=== PATIENT | female | born 1990 | race Caucasian/White ===

== ENCOUNTER 2017-03-20 12:44 | Emergency (ER) | payer OTHER ==
[~2017-03-20] VITALS: Ht 170.2 cm; Wt 74.8 kg
[~2017-03-20 12:44] MED LIST: AMOXICILLIN 50500 MG PO; APAP/OXYCODONE1 TA1 PO; FERROUS SULFAT325 M1 PO; FLEXERIL10 MG PO; KEFLEX 500MG.500 MG PO; LORTAB 5/500 501 TAB PO; MACROBID 100MG100 MG PO; NOMEDS *; PNV PRENATAL HE1 TAB PO; PRENATAL1 TA1 PO; SEPTRA DS 800 M1 TAB PO; TAMIFLU 75MG CA75 MG PO; VICODIN 5/500 T1 TAB PO; VOLTAREN75 MG PO
--- OUTSIDE RECORDS SUMMARY | 2017-03-20 13:28 | External Medical Summary Rpt ---
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 BERGERON BACTERIAL 4 [facility] INC INC QUANTTATI VE COLONY COUNT URINE US PREG 78099 SHANIA SHANIA UTERUS 4 HERBIE HERBIE AFTER 1ST TRIMEST GESTATION US PREG 54342 NATHAN EVANS UTERUS 4 KASHIF KASHIF REAL TIME W/IMAGE DCMTN TRANSVAG CYTP C/V 43189 PICKLESIM PICKLESIM AUTO THIN 4 ER JR ROBERTO ER JR ROBERTO LYR PREPJ SCR MNL RESCR PHYS IADNA 64713 PICKLESIM PICKLESIM NEISSERIA 4 ER JR ROBERTO ER JR ROBERTO GONORRHOE AE AMPLIFIED PROBE TQ URINE 32795 NATHAN EVANS 4 KASHIF KASHIF TEST VISUAL COLOR CMPRSN METHS IADNA 43121 PICKLESIM PICKLESIM CHLAMYDIA 4 ER JR ROBERTO ER JR ROBERTO [place] [address] SHANIA SHANIA 4 HERBIE HERBIE UTERUS 14 WK TRANSABDL GESTAT COMPREHEN 14949 RUBIO BERGERON SIVE 4 [facility] METABOLIC INC INC PANEL GONADOTRO 19953 RUBIO BERGERON PIN 4 [facility] CHORIONIC INC INC QUANTITAT STALIN US PREG 40712 RUBIO BERGERON UTERUS 4 [facility] REAL TIME INC INC W/IMAGE DCMTN TRANSVAG URINE 45841 RUBIO BERGERON 4 [facility] TEST INC INC VISUAL COLOR CMPRSN METHS CULTURE 98497 RUBIO BERGERON BACTERIAL 4 [facility] INC INC QUANTTATI VE COLONY COUNT URINE URNLS DIP 71383 RUBIO BERGEORN 4 [facility] STICK/TAB INC INC LET REAGENT AUTO MICROSCOP Y BLOOD 74182 RUBIO BERGERON COUNT 4 [facility] COMPLETE INC INC AUTO&AUTO DIFRNTL WBC CT LUMBAR 53531 SHANIA SHANIA SPINE 4 HERBIE HERBIE W/O CONTRAST MATERIAL REMOVAL 33039 NATHAN EVANS INTRAUTER 3 KASHIF KASHIF INE DEVICE IUD IAADIADOO 51611 ANA MARÍA PREET ANA MARÍA PREET 3 STREPTOCO CCUS GROUP A CULTURE 45269 RUBIO BERGERON BCT 3 [facility] ISOL&PRSM INC INC PTV ID ISOLATE EA URINE CULTURE 17613 RUBIO BERGERON BACTERIAL 3 [facility] INC INC QUANTTATI VE COLONY COUNT URINE URINE 80255 RUBIO BERGERON 3 [facility] TEST INC INC VISUAL COLOR CMPRSN METHS SUSCEPTIB 45213 RUBIO BERGERON LTY STDY 3 [facility] ANTIMICRB INC INC IAL MICRO/AGA R DILUTJ URNLS DIP 84428 RUBIO BERGERON 3 [facility] STICK/TAB INC INC LET REAGENT AUTO MICROSCOP Y URNLS DIP 78914 [facility] 3 PHYSICIAN PHYSICIAN STICK/TAB S GROUP S GROUP LET RGNT NON-AUTO W/O MICRSCP IAADIADOO 92508 NILSA NILSA 2 NYASIA NYASIA INFLUENZA IAADI 93724 RUBIO BERGERON INFFLUENZ 2 [facility] A A VIRUS INC INC IAADI 41322 RUBIO BERGERON INFLUENZA 2 [facility] [place] [address] RUBIO BERGERON STREPTOCO 2 [facility] CCUS INC INC GROUP A IADNA 60593 MARILYN MARILYN STREPTOCO 1 KESHIA KESHIA CCUS GROUP A QUANTIFIC ATION THER 82583 RAKESH CAMERON PROPH/DX 1 LACIE LACIE NJX IV PUSH SINGLE/1S T SBST/DRUG DEEP D9220 RAKESH CAMERON SEDATION/ 1 LACIE LACIE GENERAL ANESTHESI A-1ST 30 MINUTES ORTHOPANT 23075 RAKESH CAMERON OGRAM 1 LACIE LACIE LEVONORGE J7302 [facility] STREL-RLS 1 [facility] E CLINIC OF INTRAUTER MADY N CNTRACPT 52 MG URINE 13012 [facility] 1 [facility] TEST CLINIC OF VISUAL MADY COLOR CMPRSN METHS INSERTION 95611 [facility] 1 [facility] INTRAUTER CLINIC OF INE MADY DEVICE IUD CYTP C/V 21456 PATHOLOGY PATHOLOGY AUTO THIN 1 & & LYR CYTOLOGY CYTOLOGY PREPJ SCR LAB LAB MNL RESCR [facility] 21453 [facility] DISCHARGE 1 PHYSICIAN RALF DAY GROUP MANAGEMEN PCC T 30 MIN/< VAGINAL 45940 [facility] DELIVERY 1 PHYSICIAN RALF ONLY GROUP PCC INITIAL 78218 [facility] 1 PHYSICIAN RALF CARE/DAY GROUP 70 PCC MINUTES REPAIR OF 7569 RUBIO RUBIO OTHER 1 [facility] CURRENT INC INC OBSTETRIC LACERATIO N 08489 [facility] NONSTRESS 1 [facility] TEST CLINIC OF MADY 30284 [facility] NONSTRESS 1 [facility] TEST CLINIC OF MADY DOPPLER 31097 RUBIO BERGERON VELOCIMET 1 [facility] RY INC INC UMBILICAL ARTERY SERVICES 44212 [facility] PROVIDED 1 [facility] OFFICE CLINIC OF OTH/THN MADY REG SCHED HOURS US PREG 54068 RUBIO BERGERON UTERUS 1 [facility] REAL TIME INC INC F/U TRNSABDL PER FETUS 81036 RUBIO BERGERON BIOPHYSIC 1 [facility] AL INC INC PROFILE W/O NON-STRES S TESTING CUL BACT 93516 COMBINED COMBINED XCPT 1 PHYSICIAN PHYSICIAN URINE S LA S LA BLOOD/STO OL AEROBIC ISOL 92556 [facility] NONSTRESS 1 [facility] TEST CLINIC OF MADY 37175 RUBIO BERGERON NONSTRESS 1 [facility] TEST INC INC CULTURE 66946 RUBIO BERGERON BACTERIAL 1 [facility] INC INC QUANTTATI VE COLONY COUNT URINE URNLS DIP 97546 RUBIO BERGERON 1 [facility] STICK/TAB INC INC LET REAGENT AUTO MICROSCOP Y 69596 [facility] BIOPHYSIC 1 [facility] AL CLINIC OF PROFILE MADY NON-STRES S TESTING DOPPLER 45959 [facility] VELOCIMET 1 [facility] RY CLINIC OF UMBILICAL MADY ARTERY US PREG 82634 [facility] UTERUS 1 [facility] REAL TIME CLINIC OF F/U MADY TRNSABDL PER FETUS THERAPEUT 10541 RUBIO BERGERON IC 1 [facility] PROPHYLAC INC INC TIC/DX INJECTION SUBQ/IM THERAPEUT 65255 RUBIO BERGERON IC 1 [facility] PROPHYLAC INC INC TIC/DX INJECTION SUBQ/IM 85209 RUBIO ORTEGAON NONSTRESS 1 [facility] TEST INC INC 90502 [facility] SHANIA BIOPHYSIC 1 MEDICAL HERBIE AL IMAGING PROFILE ASS W/O NON-STRES S TESTING DOPPLER 01997 [facility] HE[facility] VELOCIMET 1 MEDICAL HERBIE RY IMAGING UMBILICAL ASS ARTERY US PREG 67106 [facility] UTERUS 1 MEDICAL HERBIE REAL TIME IMAGING W/IMAGE ASS DCMTN TRANSVAG DOPPLER 27426 [facility] HEALYSH[facility]IA VELOCIMET 1 MEDICAL HERBIE RY IMAGING UMBILICAL ASS ARTERY US PREG 65805 [facility] JAUREGUI UTERUS 1 MEDICAL HERBIE REAL TIME IMAGING F/U ASS TRNSABDL PER FETUS 25803 [place] SHANIA BIOPHYSIC 1 MEDICAL HERBIE AL IMAGING PROFILE ASS W/O NON-STRES S TESTING INITIAL 72875 [facility] 1 PHYSICIAN RALF CARE/DAY GROUP 70 PCC MINUTES 53103 [facility] BIOPHYSIC 1 [facility] AL CLINIC OF PROFILE MADY W/O NON-STRES S TESTING US PREG 44624 [facility] UTERUS 1 [facility] REAL TIME CLINIC OF F/U MADY TRNSABDL PER FETUS DOPPLER 88311 [facility] VELOCIMET 1 [facility]ASH[facility] RY CLINIC OF UMBILICAL MADY ARTERY GLUCOSE 54758 [facility] TOLERANCE 1 [facility] TEST GTT CLINIC OF 3 MADY SPECIMENS EXC B9 37339 A C MARILYN LESION 1 JESSA MAGALLON KESHIA MRGN XCP PSC SK TG T/A/L 0.5 CM/< US PREG 03454 [facility] UTERUS 1 [facility] AFTER 1ST CLINIC OF TRIMEST [place]ADY 1/ [place] [address] GAGE LLANOSUTCHER 0 MEDICAL HERBIE UTERUS IMAGING LIMITED ASS 1/> [place] [address] RUBIO BERGERON ESTRIOL 0 [facility] INC INC ALPHA-FET 99194 RUBIO BERGERON OPROTEIN 0 [facility] SERUM INC INC URNLS DIP 23915 RUBIO RUBIO 0 [facility] STICK/TAB INC INC LET REAGENT AUTO MICROSCOP Y CULTURE 55993 RUBIO BERGERON BACTERIAL 0 [facility] INC INC QUANTTATI VE COLONY COUNT URINE US PREG 98462 RUBIO BERGERON UTERUS 0 [facility] REAL TIME INC INC W/IMAGE DCMTN TRANSVAG US PREG 32084 [facility] UTERUS 0 [facility] REAL TIME CLINIC OF W/IMAGE MADY DCMTN TRANSVAG CYTP C/V 02119 PATHOLOGY PATHOLOGY AUTO THIN 0 & & LYR CYTOLOGY CYTOLOGY PREPJ SCR LAB LAB MNL RESCR PHYS CYTP 43248 PATHOLOGY PATHOLOGY CERVICAL/ 0 & & VAGINAL CYTOLOGY CYTOLOGY REQ LAB LAB INTERP PHYSICIAN IADNA 72863 PATHOLOGY PATHOLOGY CHLAMYDIA 0 & & CYTOLOGY CYTOLOGY TRACHOMAT LAB LAB IS AMPLIFIED PROBE TQ IADNA 00321 PATHOLOGY PATHOLOGY NEISSERIA 0 & & CYTOLOGY CYTOLOGY GONORRHOE LAB LAB AE AMPLIFIED PROBE TQ GONADOTRO 46359 RUBIO RUBIO PIN 0 [facility] CHORIONIC INC [place] 73158 [facility], UTERUS 0 [facility] J REAL TIME CLINIC OF W/IMAGE DCMTN [place] [facility]SV[facility] GONADOTRO 28923 RUBIO ORTEGAON PIN 0 [facility] CHORIONIC INC [place] 30543 RUBIO BERGERON UTERUS 0 [facility] REAL TIME INC INC W/IMAGE DCMTN TRANSVAG BASIC 28161 RUBIO BERGERON METABOLIC 0 [facility] PANEL INC INC CALCIUM TOTAL URINE 60771 RUBIO BERGERON 0 [facility] TEST INC INC VISUAL COLOR CMPRSN METHS URNLS DIP 47784 RUBIO RUBIO 0 [facility] STICK/TAB INC INC LET REAGENT AUTO MICROSCOP Y CULTURE 27792 RUBIO BERGERON BACTERIAL 0 [facility] INC INC QUANTTATI VE COLONY COUNT URINE BLOOD 51170 RUBIO RUBIO COUNT 0 [facility] COMPLETE INC INC AUTO&AUTO DIFRNTL [facility] 30473 Ashly SANDERS, DISCHARGE 0 JESSA JIMENEZ DAY [facility] MANAGEMEN T 30 MIN/< CIRCUMCIS 79975 Ashly SANDERS, ION 0 JESSA JIMENEZ W/CLAMP/O PSC TH DEV W/BLOCK 1ST 10769 Ashly Domo SANDERS, HOSP/DENA 0 JESSA JIMENEZ [facility] CARE PER DAY NML NB VAGINAL 32868 [facility], DELIVERY 0 [facility] J ONLY CLINIC OF W/POSTPAR [facility] REPAIR OF 7569 RUBIO BERGERON OTHER 0 [facility] CURRENT INC INC OBSTETRIC LACERATIO N 47972 [facility], NONSTRESS 0 [facility] J TEST [facility] [place] [facility] 05871 [facility], NONSTRESS 0 [facility] J [facility] 16541 [facility], NONSTRESS 0 [facility] J TEST [facility] 53793 [facility], PROVIDED 0 [facility] J OFFICE CLINIC OF OT/N REG SCHED [facility] 27625 RUBIO BERGERON NONSTRESS 0 [facility] TEST INC INC CULTURE 74268 RUBIO BERGERON BCT 0 [facility] ISOL&PRSM INC INC PTV ID ISOLATE EA URINE CULTURE 47855 RUBIO BERGERON BACTERIAL 0 [facility] INC INC QUANTTATI VE COLONY COUNT URINE SUSCEPTIB 00780 RUBIO BERGERON LTY STDY 0 [facility] ANTIMICRB INC INC IAL MICRO/AGA R DILUTJ URNLS DIP 26427 RUBIO BERGERON 0 [facility] STICK/TAB INC INC LET REAGENT AUTO MICROSCOP Y CUL BACT 21289 COMBINED COMBINED XCPT 0 PHYSICIAN PHYSICIAN URINE S LAB S LAB BLOOD/STO [place]EROBIC [place]OL [place] P[place] 54049 [facility], UTERUS 9 [facility] J REAL TIME CLINIC OF F/U TRNSABDL DORENA PER FETUS [facility] DOPPLER 80771 [facility], VELOCIMET 9 [facility] UMBILICAL ARTERY [place] [facility] 63211 [facility], BIOPHYSIC 9 [facility] J AL CLINIC OF PROFILE W/O [place] NON-STRES [facility] [place] [address] RUBIO BERGERON STREPTOCO 9 [facility] CCUS INC INC GROUP A IAADI 19487 RUBIO BERGERON INFLUENZA 9 [facility] B VIRUS INC INC IAADI 80904 RUBIO BERGERON INFFLUENZ 9 [facility] A A VIRUS INC INC GLUCOSE 02896 [facility], TOLERANCE 9 [facility] TEST GTT CLIN[facility] OF 3 SPECIMENS CY[place] ALEJANDRA [facility] GLUCOSE 58330 [facility], POST 9 [facility] GLUCOSE CLINIC OF DOSE [place] [facility] US PREG 37379 [facility], UTERUS 9 [facility] AFTER 1ST CLINIC OF TRIMEST [place] GESTATION [facility] CULTURE 86684 RUBIO BERGERON BACTERIAL 9 [facility] INC INC QUANTTATI VE COLONY COUNT URINE BLOOD 35232 RUBIO BERGERON COUNT 9 [facility] COMPLETE INC INC AUTO&AUTO DIFRNTL WBC URNLS DIP 09842 RUBIO BERGERON 9 [facility] STICK/TAB INC INC LET REAGENT AUTO MICROSCOP Y COMPREHEN 92902 RUBIO BERGERON SIVE 9 [facility] [place] [address] RUBIO BERGERON ESTRIOL 9 [facility] INC INC ALPHA-FET 77978 RUBIO BERGERON OPROTEIN 9 [facility] SERUM INC INC GONADOTRO 08040 RUBIO BERGERON PIN 9 [facility] CHORIONIC [place] [address]175 FABIANO MCCAINL, UTERUS 9 KRYS Cerrato REAL TIME W/IMAGE DCMTN TRANSVAG IADNA 10990 [facility] NEISSERIA 9 [facility] GONORRHOE AE AMPLIFIED PROBE TQ IADNA 00804 [facility] CHLAMYDIA 9 [facility] TRACHOMAT IS AMPLIFIED PROBE TQ URINE 76090 [facility], 9 [facility] TEST CLINIC OF VISUAL COLOR [place] CMPRSN [facility] METHS [place] P[place] 41069 [facility], UTERUS 9 [facility] REAL TIME CLINIC OF W/IMAGE DCMTN [place] TRANSVAG [facility] OBSTETRIC 58697 RUBIO BERGERON PANEL 9 [facility] INC INC CYTP C/V 01569 [facility] AUTO THIN 9 [facility] LYR PREPJ S[place] [address] [facility] NON-IMMUN 9 [facility] OLOGIC OTH/THN CYTOPATHI C IADNA 47562 [facility] [place] 9 [facility] GONORRHOE AE AMPLIFIED PROBE TQ IADNA 82459 [facility] CHLAMYDIA 9 [facility] TRACHOMAT IS AMPLIFIED PROBE TQ GONADOTRO 14062 RUBIO BERGERON PIN 9 [facility] CHORIONIC INC INC QUANTITAT STALIN GONADOTRO 10860 RUBIO BERGERON PIN 9 [facility] CHORIONIC INC INC QUANTITAT STALIN CULTURE 98880 RUBIO BERGERON BACTERIAL 9 [facility] INC INC QUANTTATI VE COLONY COUNT URINE BLOOD 16953 RUBIO BERGERON COUNT 9 [facility] COMPLETE INC INC AUTO&AUTO DIFRNTL WBC URNLS DIP 49823 RUBIO BERGERON 9 [facility] STICK/TAB INC INC LET REAGENT AUTO MICROSCOP Y URINE 79690 RUBIO BERGERON 9 [facility] TEST INC INC VISUAL COLOR CMPRSN METHS INJ J1055 [facility] RUBIO MDRXYPRGE 8 [facility] ACTAT BANK ACCT CNTRACPT USE 150 MG INJ J1055 [facility] RUBIO MDRXYPRGE [address] [place] [address] ACTAT BANK ACCT CNTRACPT USE 150 MG INJ J1055 [facility] RUBIO MDRXYPRGE 8 [facility] ACTAT BANK ACCT CNTRACPT USE 150 MG Encounters Encounter Start End Date Code Location Performer Type Date [facility] RUBIO - 7 7 [facility] OUTPATIEN INC T OFFICE 68258 [facility] OUTPATIEN 7 7 PHYSICIAN T VISIT S GROUP 15 MINUTES HOSPITAL RUBIO - 6 6 [facility] OUTPATIEN INC T OFFICE 48127 [facility] OUTPATIEN 6 6 PHYSICIAN EUG T VISIT S GROUP 15 MINUTES OFFICE 92088 [facility] PE[facility] OUTPATIEN 6 6 PHYSICIAN STONE T VISIT S GROUP GEOVANNY GARZA 15 MINUTES OFFICE 68421 [facility] J[facility] OUTPATIEN 6 6 PHYSICIAN AUDRA T VISIT S GROUP 25 MINUTES OFFICE 42532 [facility] OUTPATIEN 6 6 PHYSICIAN EUG T VISIT S GROUP 10 MINUTES HOSPITAL RUBIO - 6 6 [facility] OUTPATIEN INC T OFFICE 72996 [facility] OUTPATIEN 6 6 PHYSICIAN EUG T VISIT S GROUP 15 MINUTES OFFICE 24846 [facility] ROBERTA OUTPATIEN 6 6 PHYSICIAN AUDRA T VISIT S GROUP 25 MINUTES OFFICE 63868 RUBIO GRANADOS OUTPATIEN 5 5 [facility] T VISIT [facility] 10 MINUTES OFFICE 12888 RUBIO JOE OUTPATIEN 5 5 [facility] 10 MINUTES OFFICE 52488 Ashly VARELA OUTPATIEN 5 5 JESSA MAGALLON JEAshly T VISIT [facility] 15 MINUTES OFFICE 92617 RUBIO GRANADOS OUTPATIEN 5 5 [facility] T VISIT [facility] 15 MINUTES PERIODIC 75237 [facility] PREVENTIV 5 5 PHYSICIAN E MED EST S GROUP PATIENT 18-39 YRS OFFICE 74181 Ashly VARELA OUTPATIEN 5 5 JESSA STERLING T VISIT PSC 15 MINUTES HOSPITAL RUBIO - 4 4 [facility] INPATIENT INC OFFICE 45885 [facility] OUTPATIEN 4 4 KASHIF KASHIF T VISIT 15 MINUTES OFFICE 77743 [facility] OUTPATIEN 4 4 KASHIF KASHIF T VISIT 15 MINUTES HOSPITAL RUBIO - 4 4 [facility] OUTPATIEN INC T [facility]OSPITAL RUBIO - 4 4 [facility] OUTPATIEN INC [facility] RUBIO - 4 4 [facility] OUTPATIEN INC T OFFICE 27611 [facility] OUTPATIEN 4 4 KASHIF KASHIF T VISIT 15 MINUTES HOSPITAL RUBIO - 4 4 [facility] OUTPATIEN INC T OFFICE 27617 [facility] OUTPATIEN 4 4 KASHIF KASHIF T VISIT 15 MINUTES OFFICE 16947 [facility] OUTPATIEN 4 4 KASHIF KASHIF T VISIT 15 MINUTES HOSPITAL RUBIO - 4 4 [facility] OUTPATIEN INC T OFFICE 94885 [facility] OUTPATIEN 4 4 KASHIF KASHIF T VISIT 15 MINUTES OFFICE 88892 [facility] OUTPATIEN 4 4 KASHIF KASHIF T VISIT 15 MINUTES HOSPITAL CENTRAL - 4 4 [facility] OUTPATIEN HOSP T HOSPITAL RUBIO - 4 4 [facility] OUTPATIEN INC T OFFICE 92388 [facility] OUTPATIEN 4 4 KASHIF KASHIF T VISIT 15 MINUTES HOSPITAL RUBIO - 4 4 [facility] OUTPATIEN INC T OFFICE 43175 NATHAN EVNAS OUTPATIEN 4 4 KASHIF KASHIF T VISIT 15 MINUTES OFFICE 12591 [facility] OUTPATIEN 4 4 KASHIF KASHIF T VISIT 15 MINUTES OFFICE 81309 [facility] OUTPATIEN 4 4 KASHIF KASHIF T VISIT 5 MINUTES OFFICE 55192 NATHAN DANIELLEE OUTPATIEN 4 4 KASHIF KASHIF T VISIT 15 MINUTES HOSPITAL CENTRAL - 4 4 Y[facility]ANI OUTPATIEN HOSP T OFFICE 94931 [facility] CONSULTAT 4 4 HERBIE HERBIE ION NEW/ESTAB PATIENT 15 MIN OFFICE 55478 [facility] OUTPATIEN 4 4 KASHIF KASHIF T VISIT 15 MINUTES HOSPITAL RUBIO - 4 4 [facility] OUTPATIEN INC T HOSPITAL RUBIO - 4 4 [facility] OUTPATIEN INC T EMERGENCY 30194 RUBIO 4 4 [facility] DEPARTMEN INC T VISIT LOW/MODER SEVERITY EMERGENCY 72439 [facility] ALFARIS 4 4 [facility] DEPARTMEN T VISIT HIGH/URGE NT SEVERITY OFFICE 66925 [facility] OUTPATIEN 4 4 KASHIF KASHIF T VISIT 15 MINUTES OFFICE 48006 [facility] OUTPATIEN 4 4 PHYSICIAN T VISIT S GROUP 10 MINUTES OFFICE 24830 [facility] OUTPATIEN 4 4 KASHIF KASHIF T VISIT 15 MINUTES OFFICE 39997 [facility] OUTPATIEN 4 4 KASHIF KASHIF T VISIT 25 MINUTES EMERGENCY 86672 RUBIO 4 4 [facility] DEPARTMEN INC T VISIT MODERATE SEVERITY EMERGENCY 80039 MARIIA CHANTEL MARIIA CHANTEL 4 4 DEPARTMEN T VISIT HIGH/URGE NT SEVERITY HOSPITAL RUBIO - 4 4 [facility] OUTPATIEN INC T Emergency JUAN PABLO Gonzalez MD (ER) 4 11:15 4 12:29 [facility] EMERGENCY 19929 RUBIO 4 4 [facility] DEPARTMEN INC T VISIT MODERATE SEVERITY HOSPITAL RUBIO - 4 4 [facility] OUTPATIEN INC T EMERGENCY 29282 JOANIEN SATINDER SOMARTIN BAB DEPT 4 4 VISIT HIGH SEVERITY& THREAT FUNCJ OFFICE 25118 ANA MARÍA GOTTI PREET OUTPATIEN 3 3 T VISIT 15 MINUTES OFFICE 40065 ANA MARÍA GOTTI PREET OUTPATIEN 3 3 T VISIT 15 MINUTES OFFICE 51776 H OUTPATIEN 3 3 PHYSICIAN T VISIT S GROUP 15 MINUTES OFFICE 02235 H OUTPATIEN 3 3 PHYSICIAN T VISIT S GROUP 15 MINUTES Emergency JUAN PABLO Yadav MD (ER) 3 09:02 3 09:44 [facility] EMERGENCY 00308 JORDIN YADAV 3 3 [facility]DR[facility] DEPARTMEN T VISIT HIGH/URGE NT SEVERITY [facility]OSPITAL [facility]BIO - 3 3 [facility] T EMERGENCY 07374 RUBIO 3 3 [facility] DEPARTMEN INC T VISIT LOW/MODER SEVERITY OFFICE 54910 [facility] OUTPATIEN 3 3 PHYSICIAN T VISIT S GROUP 15 MINUTES OFFICE 61836 ANA MARÍA GOTTI PREET OUTPATIEN 3 3 T VISIT 15 MINUTES OFFICE 90392 [facility] OUTPATIEN 3 3 PHYSICIAN T VISIT S GROUP 15 MINUTES OFFICE 69815 NILSA NILSA OUTPATIEN 2 2 [facility] T VISIT 15 MINUTES OFFICE 65899 NILSA NILSA OUTPATIEN 2 2 [facility] [place] T VISIT 15 MINUTES OFFICE 62316 MARILYN MARILYN OUTPATIEN 2 2 [facility]ESHIA KESHIA T VISIT 15 MINUTES OFFICE 10185 NILSA NILSA OUTPATIEN 2 2 [place] MURRELL T NEW 20 MINUTES HOSPITAL RUBIO - 2 2 [facility] T EMERGENCY 22115 RUBIO 2 2 [facility] DEPARTMEN INC T VISIT LOW/MODER SEVERITY EMERGENCY 87122 KEVIN BROWN 2 2 [facility]BIO - 2 2 [facility] T EMERGENCY 64255 RUBIO 2 2 [facility] T [facility]ISIT LIMITED/M INOR PROB EMERGENCY 46330 KEVIN BROWN 2 2 III [facility]IT[facility] III [facility] T VISIT HIGH/URGE NT SEVERITY OFFICE 55143 MARILYN MARILYN OUTPATIEN 1 1 KESHIA KESHIA T VISIT 15 MINUTES OFFICE 63877 [facility] 15 MADY MINUTES OFFICE 53285 RAKESH CAMERON OUTPATIEN 1 1 LACIE MEDELLIN T NEW 10 MINUTES OFFICE 45083 [facility] 1 [facility] OF 25 MADY MINUTES OFFICE 01030 [facility] 1 1 [facility] OF 15 MADY MINUTES HOSPITAL RUBIO - 1 1 [facility] INPATIENT INC OFFICE 11014 [facility] 1 1 [facility] OF 15 MADY MINUTES [facility]OSPITAL RUBIO - 1 1 [facility] INC T OFFICE 38795 [facility] 1 1 [facility] 15 MADY MINUTES [facility] RUBIO - 1 1 [facility] INC T HOSPITAL RUBIO [facility] 1 1 [facility] OUTPATIEN [facility] OFFICE 14889 [facility] 1 1 [facility] V[facility] OF 15 MADY MINUTES HOSPITAL RUBIO - 1 1 [facility] OUTPATIEN [facility]PITAL RUBIO - 1 1 [facility] INPATIENT INC OFFICE 40754 [facility] 1 1 [facility] V[facility]IN[facility] OF 15 MADY MINUTES OFFICE 47508 [facility] 1 1 [facility] OF 15 MADY MINUTES OFFICE 18360 [facility] 1 1 [facility] T VISIT 5 CLINIC OF MINUTES MADY OFFICE 61229 [facility] 1 1 [facility] V[facility]IT CLINIC OF 15 MADY MINUTES OFFICE 57876 A C MARILYN OUTPATIEN 1 1 JESSA MAGALLON KESHIA T VISIT PSC 15 MINUTES OFFICE 29469 [facility] 1 1 [facility]IN[facility] OF 15 MADY MINUTES OFFICE 68978 [facility] 1 1 [facility]IN[facility] OF 15 MADY MINUTES EMERGENCY 17103 GHASSAN YADAV DEPT 0 0 EMERGENCY [facility] VISIT SERVICES HIGH SEVERITY& THREAT FUN OFFICE 45698 [facility] 0 0 [facility] OF 15 AMDY MINUTES HOSPITAL RUBIO - 0 0 [facility] OUTPATIEN [facility] OFFICE 79822 [facility] 0 0 [facility] T VISIT CLINIC OF 15 MADY MINUTES OFFICE 86066 [facility] OUTPATIEN 0 0 [facility] T VISIT CLINIC OF 15 MADY MINUTES EMERGENCY 64926 [facility] 0 0 [facility] DEPART[facility] INC T VISIT LOW/MODER SEVERITY EMERGENCY 69293 GHASSAN BOX 0 0 EMERGENCY AWILDA DEPARTMEN SERVICES T VISIT HIGH/URGE NT SEVERITY [facility] T EMERGENCY 10912 GHASSAN YADAV, 0 0 [facility] HIGH/URGE ASSOCIATE NT S SEVERITY EMERGENCY [id number] [facility] 0 0 [facility] DEPARTMEN [facility] T VISIT MODERATE [facility]VERITY [facility] - 0 0 [facility] - 0 0 [facility] INPATIENT INC OFFICE 64534 [facility] 0 0 [facility] 15 MINUTES [facility] OFF[facility] 89869 [facility], OUTPATIEN 0 0 [facility] 15 MINUTES [facility] - 0 0 [facility] OUTPATIEN [facility] OFFICE 90660 [facility] OUTPATIEN 0 0 [facility] OF 15 MINUTES [facility] OFFICE 85631 [facility] EV[facility], OUTPATIEN 9 9 [facility] OF 15 MINUTES [facility] OFF[facility] 47765 [facility], OUTPATIEN 9 9 [facility] OF 15 MINUTES [facility] - 9 9 [facility] OUT[facility] T EMERGENCY 35363 GHASSAN BROWN 9 9 EMERGENCY III, DEPARTMEN SERVICES TOYIN T VISIT MODERATE ASSOCIATE SEVERITY S OFFICE 78253 [facility], OUTPATIEN 9 9 [facility] OF 15 MINUTES [facility] OFFICE 96811 WOMEN'S EV[facility], OUTPATIEN 9 9 [facility] 20669 WOMEN'S EVANS, OUTPATIEN 9 9 [facility] T VISIT 5 CLINIC OF MINUTES [facility] OFFICE 09906 [facility]EN'[facility] EV[facility], OUTPATIEN 9 9 [facility] T V[facility]IT [facility] OF 15 MINUTES [facility] OFF[facility] 14920 WOMEN'S EVANS, OUTPATIEN 9 9 [facility] V[facility] OF 15 MINUTES [facility] - 9 9 [facility] T EMERGENCY 12982 GHASSAN RAMIREZ, 9 9 EMERGENCY FABI P DEPARTMEN SERVICES T VISIT HIGH/URGE ASSOCIATE NT S SEVERITY EMERGENCY 59474 GHASSAN YADAV, 9 9 EMERGENCY [facility] S DEPARTMEN SERVICES T VISIT MODERATE ASSOCIATE SEVERITY S EMERGENCY 21039 [facility] 9 9 [facility] DE[facility] T VISIT LIMITED/M [facility] PROB [facility] - 9 9 [facility] T OFFICE 16191 [facility], OUTPATIEN 9 9 [facility] T V[facility]IN[facility] OF 15 MINUTES [facility] OFF[facility] 11057 [facility] EV[facility], OUTPATIEN 9 9 [facility] T V[facility] OF 15 MINUTES [facility] EMERGENCY 58590 GHASSAN RAMIREZ, 9 9 EMERGENCY FABI P DEPARTMEN SERVICES T VISIT MODERATE ASSOCIATE SEVERITY [facility] - 9 9 [facility] OUT[facility] T EMERGENCY 13758 [facility] 9 9 [facility] DEPARTMEN INC T VISIT LIMITED/M INOR PROB OFFICE 56150 FABIANO MARCANO OUTPATIEN 9 9 KRYS MARIO R T VISIT 15 MINUTES OFFICE 77846 ZENOBIA CANTUPATIEN 9 9 KRYS MARIO R T VISIT 15 MINUTES OFFICE 45701 ZENOBIA CANTUPATIEN 9 9 KRYS MARIO R T VISIT 15 MINUTES [facility] - 9 9 [facility] T [facility] - 9 9 [facility] - 9 9 [facility] T EMERGENCY 21541 [facility] 9 9 [facility] DEPARTMEN INC T VISIT MODERATE SEVERITY OFFICE 79892 [facility] 8 8 [facility] 10 BANK ACCT MINUTES OFFICE 90794 [facility] OUTPATIEN 8 8 [facility] 10 BANK ACCT MINUTES OFFICE 38493 [facility] OUT[facility] 8 8 [facility] 10 BANK ACCT MINUTES
--- OUTSIDE RECORDS SUMMARY | 2017-03-20 13:28 | External Medical Summary Rpt ---
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 NON-STRES [facility] [place] [address] RUBIO BERGERON STREPTOCO 9 [facility] CCUS INC INC GROUP A IAADI 08320 RUBIO BERGERON INFLUENZA 9 [facility] B VIRUS INC INC IAADI 63233 RUBIO BERGERON INFFLUENZ 9 [facility] A A VIRUS INC INC GLUCOSE 27910 [facility], TOLERANCE 9 [facility] J TEST GTT CLINIC OF 3 SPECIMENS [place] ALEJANDRA [facility] GLUCOSE 70985 [facility], POST 9 [facility] GLUCOSE CLINIC OF DOSE [place] [facility] US PREG 73324 [facility], UTERUS 9 [facility] AFTER 1ST CLINIC OF TRIMEST [place] GESTATION [facility] CULTURE 99968 RUBIO BERGERON BACTERIAL 9 [facility] INC INC QUANTTATI VE COLONY COUNT URINE BLOOD 79570 RUBIO BERGERON COUNT 9 [facility] COMPLETE INC INC AUTO&AUTO DIFRNTL WBC URNLS DIP 91695 RUBIO BERGERON 9 [facility] STICK/TAB INC INC LET REAGENT AUTO MICROSCOP Y COMPREHEN 27169 RUBIO BERGERON SIVE 9 [facility] [place] [address] RUBIO BERGERON ESTRIOL 9 [facility] INC INC ALPHA-FET 65070 RUBIO BERGERON OPROTEIN 9 [facility] SERUM INC INC GONADOTRO 56284 RUBIO BERGERON PIN 9 [facility] CHORIONIC INC [place] 23220 FABIANO MCCAINL, UTERUS 9 KRYS Cerrato REAL TIME W/IMAGE DCMTN TRANSVAG IADNA 83904 [facility] OF LABONE OF [place] 9 [facility] GONORRHOE AE AMPLIFIED PROBE TQ IADNA 11910 [facility] CHLAMYDIA 9 [facility] TRACHOMAT IS AMPLIFIED PROBE TQ URINE 69856 [facility], 9 [facility] TEST CLINIC OF VISUAL COLOR [place] CMPRSN [facility] METHS [place] PREG 97438 [facility], UTERUS 9 [facility] REAL TIME CLINIC OF W/IMAGE DCMTN [place] TRANSVAG [facility] OBSTETRIC 14441 RUBIO BERGERON PANEL 9 [facility] INC INC CYTP C/V 29773 [facility] AUTO THIN 9 [facility] LYR PREPJ S[place] [address] [facility] NON-IMMUN 9 [facility] OLOGIC OTH/THN CYTOPATHI C IADNA 03842 [facility] [place] 9 [facility] GONORRHOE AE AMPLIFIED PROBE TQ IADNA 90743 [facility] CHLAMYDIA 9 [facility] TRACHOMAT IS AMPLIFIED PROBE TQ GONADOTRO 78350 RUBIO BERGERON PIN 9 [facility] CHORIONIC INC INC QUANTITAT STALIN GONADOTRO 60908 RUBIO BERGERON PIN 9 [facility] CHORIONIC INC INC QUANTITAT STAILN CULTURE 49925 RUBIO BERGERON BACTERIAL 9 [facility] INC INC QUANTTATI VE COLONY COUNT URINE BLOOD 91496 RUBIO BERGERON COUNT 9 [facility] COMPLETE INC INC AUTO&AUTO DIFRNTL WBC URNLS DIP 00236 RUBIO BERGERON 9 [facility] STICK/TAB INC INC LET REAGENT AUTO MICROSCOP Y URINE 85835 RUBIO BERGERON 9 [facility] TEST INC INC VISUAL COLOR CMPRSN METHS INJ J1055 [facility]BIO MDRXYPRGE 8 [facility] ACTAT BANK ACCT CNTRACPT USE 150 MG INJ J1055 [facility] RUBIO MDRXYPRGE [address] [place] [address] ACTAT BANK ACCT CNTRACPT USE 150 MG INJ J1055 [facility]BIO MDRXYPRGE 8 [facility] ACTAT BANK ACCT CNTRACPT USE 150 MG Encounters Encounter Start End Date Code Location Performer Type Date [facility] RUBIO - 7 7 [facility] OUTPATIEN INC T OFFICE 82009 [facility] OUTPATIEN 7 7 PHYSICIAN T VISIT S GROUP 15 MINUTES HOSPITAL RUBIO - 6 6 [facility] INC T OFFICE 19141 [facility] OUTPATIEN 6 6 PHYSICIAN EUG T VISIT S GROUP 15 MINUTES OFFICE 62756 [facility] PENALOZA OUTPATIEN 6 6 PHYSICIAN STONE T VISIT S GROUP GEOVANNY GARZA 15 MINUTES OFFICE 86438 [facility] JORDIN OUTPATIEN 6 6 PHYSICIAN AUDRA T VISIT S GROUP 25 MINUTES OFFICE 29346 [facility] OUTPATIEN 6 6 PHYSICIAN EUG T VISIT S GROUP 10 MINUTES HOSPITAL RUBIO - 6 6 [facility]PAT[facility]EN INC T OFFICE 46794 [facility] OUTPATIEN 6 6 PHYSICIAN EUG T VISIT S GROUP 15 MINUTES OFFICE 66390 [facility] ROBERTA OUTPATIEN 6 6 PHYSICIAN AUDRA T VISIT S GROUP 25 MINUTES OFFICE 43452 RUBIO GRANADOS OUTPATIEN 5 5 [facility] T VISIT [facility] 10 MINUTES OFFICE 44125 RUBIO JOE OUTPATIEN 5 5 [facility] 10 MINUTES OFFICE 08406 Ashly VARELA OUTPATIEN 5 5 JESSA MAGALLON JEAshly T VISIT [facility] 15 MINUTES OFFICE 64400 RUBIO GRANADOS OUTPATIEN 5 5 [facility] T VISIT [facility] 15 MINUTES PERIODIC 68889 [facility] PREVENTIV 5 5 PHYSICIAN E MED EST S GROUP PATIENT 18-39 YRS OFFICE 87447 Ashly VARELA OUTPATIEN 5 5 JESSA STERLING T VISIT PSC 15 MINUTES HOSPITAL RUBIO - 4 4 [facility] INPATIENT INC OFFICE 75538 [facility]ATH[facility] EVANS OUTPATIEN 4 4 KASHIF KASHIF T VISIT 15 MINUTES OFFICE 53477 NATHAN EVANS OUTPATIEN 4 4 KASHIF KASHIF T VISIT 15 MINUTES HOSPITAL RUBIO - 4 4 [facility] T [facility]OSP[facility] RUBIO - 4 4 [facility]PAT[facility] INC [facility] RUBIO - 4 4 [facility] OUTPATIEN INC T OFFICE 15300 NATHAN EVANS OUTPATIEN 4 4 KASHIF KASHIF T VISIT 15 MINUTES HOSPITAL RUBIO - 4 4 [facility] OUTPATIEN INC T OFFICE 45845 NATHAN EVANS OUTPATIEN 4 4 KASHIF KASHIF T VISIT 15 MINUTES OFFICE 57830 NATHAN EVANS OUTPATIEN 4 4 KASHIF KASHIF T VISIT 15 MINUTES HOSPITAL RUBIO - 4 4 [facility] OUTPATIEN INC T OFFICE 22549 NATHAN EVANS OUTPATIEN 4 4 KASHIF KASHIF T VISIT 15 MINUTES OFFICE 67382 NATHAN EVANS OUTPATIEN 4 4 KASHIF KASHIF T VISIT 15 MINUTES HOSPITAL CENTRAL - 4 4 JUDAISM OUTPATIEN HOSP T HOSPITAL RUBIO - 4 4 [facility] OUTPATIEN INC T OFFICE 08037 NATHAN EVANS OUTPATIEN 4 4 KASHIF KASHIF T VISIT 15 MINUTES HOSPITAL RUBIO - 4 4 [facility] OUTPATIEN INC T OFFICE 54171 NATHAN EVANS OUTPATIEN 4 4 KASHIF KASHIF T VISIT 15 MINUTES OFFICE 13564 NATHAN EVANS OUTPATIEN 4 4 KASHIF KASHIF T VISIT 15 MINUTES OFFICE 22822 NATHAN EVANS OUTPATIEN 4 4 KASHIF KASHIF T VISIT 5 MINUTES OFFICE 26656 NATHAN DANIELLEE OUTPATIEN 4 4 KASHIF KASHIF T VISIT 15 MINUTES HOSPITAL CENTRAL - 4 4 JUDAISM OUTPATIEN HOSP T OFFICE 04164 [facility] CONSULTAT 4 4 HERBIE HERBIE ION NEW/ESTAB PATIENT 15 MIN OFFICE 77243 NATHAN EVANS OUTPATIEN 4 4 KASHIF KASHIF T VISIT 15 MINUTES HOSPITAL RUBIO - 4 4 [facility] OUTPATIEN INC T HOSPITAL RUBIO - 4 4 [facility] OUTPATIEN INC T EMERGENCY 72160 RUBIO 4 4 [facility] DEPARTMEN INC T VISIT LOW/MODER SEVERITY EMERGENCY 78541 ALFARIS ALFARIS 4 4 [facility] DEPARTMEN T VISIT HIGH/URGE NT SEVERITY OFFICE 16917 NATHAN EVANS OUTPATIEN 4 4 KASHIF KASHIF T VISIT 15 MINUTES OFFICE 55343 [facility] OUTPATIEN 4 4 PHYSICIAN T VISIT S GROUP 10 MINUTES OFFICE 61891 NATHAN EVANS OUTPATIEN 4 4 KASHIF KASHIF T VISIT 15 MINUTES OFFICE 80937 NATHAN EVANS OUTPATIEN 4 4 KASHIF KASHIF T VISIT 25 MINUTES EMERGENCY 77577 RUBIO 4 4 [facility] DEPARTMEN INC T VISIT MODERATE SEVERITY EMERGENCY 23397 MARIIA CHANTEL MARIIA CHANTEL 4 4 DEPARTMEN T VISIT HIGH/URGE NT SEVERITY HOSPITAL RUBIO - 4 4 [facility] OUTPATIEN INC T Emergency JUAN PABLO Gonzalez MD (ER) 4 11:15 4 12:29 [facility] EMERGENCY 50025 RUBIO 4 4 [facility] DEPARTMEN INC T VISIT MODERATE SEVERITY HOSPITAL RUBIO - 4 4 [facility] OUTPATIEN INC T EMERGENCY 04248 JOANIEN SATINDER SOMARTIN BAB DEPT 4 4 VISIT HIGH SEVERITY& THREAT FUNCJ OFFICE 00379 ANA MARÍA GOTTI PREET OUTPATIEN 3 3 T VISIT 15 MINUTES OFFICE 93137 ANA MARÍA GOTTI PREET OUTPATIEN 3 3 T VISIT 15 MINUTES OFFICE 87189 H OUTPATIEN 3 3 PHYSICIAN T VISIT S GROUP 15 MINUTES OFFICE 29741 H OUTPATIEN 3 3 PHYSICIAN T VISIT S GROUP 15 MINUTES Emergency JUAN PABLO Yadav MD (ER) 3 09:02 3 09:44 [facility] EMERGENCY 12034 JORDIN YADAV 3 3 [facility] AUDRA DEPARTMEN T VISIT HIGH/URGE NT SEVERITY HOSPITAL RUBIO - 3 3 [facility] OUTPATIEN INC T EMERGENCY 31743 RUBIO 3 3 [facility] DEPARTMEN INC T VISIT LOW/MODER SEVERITY OFFICE 77967 [facility] OUTPATIEN 3 3 PHYSICIAN T VISIT S GROUP 15 MINUTES OFFICE 61969 ANA MARÍA GOTTI PREET OUTPATIEN 3 3 T VISIT 15 MINUTES OFFICE 46028 [facility] OUTPATIEN 3 3 PHYSICIAN T VISIT S GROUP 15 MINUTES OFFICE 20885 NILSA NILAS OUTPATIEN 2 2 [facility] NYAS[facility] T VISIT 15 MINUTES OFFICE 92115 NILSA NILSA OUTPATIEN 2 2 [place] T VISIT 15 MINUTES OFFICE 56240 MARILYN MARILYN OUTPATIEN 2 2 KESHIA KESHIA T VISIT 15 MINUTES OFFICE 45505 NILSA NILSA OUTPATIEN 2 2 [place] MURRELL T NEW 20 MINUTES HOSPITAL RUBIO - 2 2 [facility] OUTPATIEN INC T EMERGENCY 52750 RUIBO 2 2 [facility] DEPARTMEN INC T VISIT LOW/MODER SEVERITY EMERGENCY 10203 KEVIN BROWN 2 2 III [facility] MODERATE SEVERITY [facility] RUBIO - 2 2 [facility] OUTPATIEN INC T EMERGENCY 12568 RUBIO 2 2 [facility] T VISIT LIMITED/M INOR PROB EMERGENCY 63990 KEVIN BROWN 2 2 III CAITLIN III [facility] T VISIT HIGH/URGE NT SEVERITY OFFICE 31809 MARILYN MARILYN OUTPATIEN 1 1 KESHIA KESHIA T VISIT 15 MINUTES OFFICE 16682 [facility] OUT[facility] 1 1 [facility] T VISIT CLINIC OF 15 MADY MINUTES OFFICE 96492 RAKESH CAMERON OUTPATIEN 1 1 LACIE MEDELLIN T NEW 10 MINUTES OFFICE 20278 [facility] OUTPATIEN 1 1 [facility] T VISIT CLINIC OF 25 MADY MINUTES OFFICE 48239 [facility] OUTPATIEN 1 1 [facility] T VISIT CLINIC OF 15 MADY MINUTES HOSPITAL RUBIO - 1 1 [facility] INPATIENT INC OFFICE 35411 W[facility] OUTPATIEN 1 1 [facility] KASH[facility] T VISIT CLINIC OF 15 MADY MINUTES HOSPITAL RUBIO - 1 1 [facility] OUTPATIEN INC T OFFICE 48477 [facility] OUTPATIEN 1 1 [facility]ASH[facility] T VISIT CLINIC OF 15 MADY MINUTES HOSPITAL RUBIO - 1 1 [facility] OUTPATIEN INC T HOSPITAL RUBIO - 1 1 [facility] OUTPATIEN [facility] OFFICE 71412 [facility] OUTPATI[facility] 1 1 [facility] T VISIT CLINIC OF 15 MADY MINUTES HOSPITAL RUBIO - 1 1 [facility] RUBIO - 1 1 [facility] INPATIENT INC OFFICE 16245 [facility] OUTPATIEN 1 1 [facility] KASHIF T VISIT CLINIC OF 15 MADY MINUTES OFFICE 68629 [facility] OUTPATIEN 1 1 [facility]ASH[facility] T VISIT CLINIC OF 15 MADY MINUTES OFFICE 23024 [facility] OUTPATIEN 1 1 [facility]ALTH KASH[facility] T VISIT 5 CLINIC OF MINUTES MADY OFFICE 75148 [facility] OUTPATIEN 1 1 [facility]ALTH [facility]ASH[facility] T VISIT CLINIC OF 15 MADY MINUTES OFFICE 14453 A C MARILYN OUTPATIEN 1 1 JESSA MAGALLON KESHIA T VISIT PSC 15 MINUTES OFFICE 22819 [facility] OUTPATIEN 1 1 [facility] T VISIT CLINIC OF 15 MADY MINUTES OFFICE 95249 [facility] OUTPATIEN 1 1 [facility] T VISIT CLINIC OF 15 MADY MINUTES EMERGENCY 38720 GHASSAN YADAV DEPT 0 0 EMERGENCY AUDRA VISIT SERVICES HIGH SEVERITY& THREAT FUN OFFICE 43106 [facility] OUTPATIEN 0 0 [facility] T VISIT CLINIC OF 15 MADY MINUTES HOSPITAL RUBIO - 0 0 [facility] OUTPATIEN [facility] OFFICE 43045 [facility] OUTPATIEN 0 0 [facility]ALTH KASH[facility] T VISIT CLINIC OF 15 MADY MINUTES OFFICE 28719 [facility] OUTPATIEN 0 0 [facility] KASH[facility] T VISIT CLINIC OF 15 MADY MINUTES EMERGENCY 68891 RUBIO 0 0 [facility] DEPARTMEN INC T VISIT LOW/MODER SEVERITY EMERGENCY 22646 GHASSAN BOX 0 0 EMERGENCY AWILDA DEPARTMEN SERVICES T VISIT HIGH/URGE NT SEVERITY HOSPITAL RUBIO - 0 0 [facility] OUTPATIEN INC [facility]OSPITAL RUBIO - 0 0 [facility] OUTPATIEN [facility] T EMERGENCY 31533 GHASSAN YADAV, 0 0 [facility] HIGH/URGE ASSOCIATE NT S SEVERITY EMERGENCY 81443 RUBIO 0 0 [facility] DEPARTMEN [facility] T VISIT MODERATE SEVERITY HOSPITAL RUBIO - 0 0 [facility] OUTPATIEN [facility] RUBIO - 0 0 [facility] INPATIENT INC OFFICE 13430 [facility], OUTPATIEN 0 0 HEALTH SONALI J T VISIT CLINIC OF 15 MINUTES [facility] OFFICE 83086 [facility], OUTPATIEN 0 0 [facility] SON[facility]I J T VISIT CLINIC OF 15 MINUTES [facility] RUBIO - 0 0 [facility] OUTPATIEN [facility] OFFICE 19423 [facility], OUTPATIEN 0 0 HEALTH SONALI J T VISIT CLINIC OF 15 MINUTES [facility] OFFICE 06884 [facility], OUTPATIEN 9 9 [facility]ALTH SONALI J T VISIT CLINIC OF 15 MINUTES [facility] OFFICE 04055 [facility], OUTPATIEN 9 9 [facility]ALTH SONALI J T VISIT CLINIC OF 15 MINUTES [facility] RUBIO - 9 9 [facility] OUTPATIEN INC T EMERGENCY 89306 GHASSAN BROWN 9 9 EMERGENCY III, DEPARTMEN SERVICES TOYIN T VISIT MODERATE ASSOCIATE SEVERITY S OFFICE 68690 [facility], OUTPATIEN 9 9 [facility]I J T VISIT CLINIC OF 15 MINUTES [place] [facility] OFFICE 64282 [facility], OUTPATIEN 9 9 [facility] 81971 [facility], OUTPATIEN 9 9 HEALTH SONALI J T VISIT 5 CLINIC OF MINUTES [facility] OFFICE 11356 [facility], OUTPATIEN 9 9 HEALTH SONALI J T VISIT CLINIC OF 15 MINUTES [facility] OFFICE 13492 [facility], OUTPATIEN 9 9 [facility]ALTH SONALI J T VISIT CLINIC OF 15 MINUTES [facility] RUBIO - 9 9 [facility] OUTPATIEN INC T EMERGENCY 77861 GHASSAN RAMIREZ, 9 9 EMERGENCY FABI P DEPARTMEN SERVICES T VISIT HIGH/URGE ASSOCIATE NT S SEVERITY EMERGENCY 25388 GHASSAN YADAV, 9 9 EMERGENCY MAMADOU S DEPARTMEN SERVICES T VISIT MODERATE ASSOCIATE SEVERITY S EMERGENCY 20237 RUBIO 9 9 [facility] DEPARTMEN INC T VISIT LIMITED/M INOR PROB HOSPITAL RUBIO - 9 9 [facility] OUTPATIEN INC T OFFICE 51852 [facility], OUTPATIEN 9 9 [facility]ALTH SONALI J T VISIT CLINIC OF 15 MINUTES [facility] OFFICE 09391 [facility], OUTPATIEN 9 9 HEALTH SONALI J T VISIT CLINIC OF 15 MINUTES [facility] EMERGENCY 02620 GHASSAN RAMIREZ, 9 9 EMERGENCY FABI P DEPARTMEN SERVICES T VISIT MODERATE ASSOCIATE SEVERITY HOSPITAL RUBIO - 9 9 [facility] OUTPATIEN INC T EMERGENCY 10730 RUBIO 9 9 [facility] DEPARTMEN INC T VISIT LIMITED/M INOR PROB OFFICE 61081 FABIANO MARCANO OUTPATIEN 9 9 KRYS MARIO R T VISIT 15 MINUTES OFFICE 57484 ZENOBIA CANTUPATIEN 9 9 KRYS MARIO R T VISIT 15 MINUTES OFFICE 90417 ZENOBIA CANTUPATIEN 9 9 KRYS MARIO R T VISIT 15 MINUTES HOSPITAL RUBIO - 9 9 [facility] OUTPATIEN INC T [facility]OSPITAL RUBIO - 9 9 [facility] OUTPATIEN INC T [facility]OSPITAL RUBIO - 9 9 [facility] OUTPATIEN INC T EMERGENCY 38758 RUBIO 9 9 [facility] DEPARTMEN INC T VISIT MODERATE SEVERITY OFFICE 83568 [facility] OUTPATIEN 8 8 [facility] T VISIT [facility] [place] 10 BANK ACCT MINUTES OFFICE 11098 [facility] RUBIO OUTPATIEN 8 8 [facility] T VISIT [facility] [place] 10 BANK ACCT MINUTES OFFICE 05373 [facility] RUBIO OUTPATIEN 8 8 [facility] T VISIT [facility] 10 BANK ACCT MINUTES
--- OUTSIDE RECORDS SUMMARY | 2017-03-20 13:34 | External Medical Summary Rpt ---
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 [facility] ISOL&PRSM INC INC PTV ID ISOLATE EA URINE 70786 [facility], NONSTRESS 0 [facility] J TEST CLINIC OF [place] [facility] URNLS DIP 95883 [facility]BIO BERGERON 0 [facility] STICK/TAB INC INC LET REAGENT AUTO MICROSCOP Y SUSCEPTIB 55726 RUBIO BERGERON LTY STDY 0 [facility] ANTIMICRB INC INC IAL MICRO/AGA R DILUTJ CUL BACT 41110 COMBINED COMBINED XCPT 0 PHYSICIAN PHYSICIAN URINE S LAB S LAB BLOOD/STO OL AEROBIC ISOL 39589 [facility], BIOPHYSIC 9 [facility] J AL CLINIC OF PROFILE W/O [place] NON-STRES [facility] S TESTING DOPPLER 71914 [facility], VELOCIMET 9 [facility] J RY CLINIC [facility]IL[facility] [place] P[place] 23479 [facility], UTERUS 9 [facility] J REAL TIME CLINIC OF F/U TRNSABDL [place] PER FETUS [facility] IAADI 21837 RUBIO BERGERON INFFLUENZ 9 [facility] A A VIRUS INC INC IAADI 15093 RUBIO BERGERON INFLUENZA 9 [facility] [place] [address] RUBIO BERGERON STREPTOCO 9 [facility] CCUS INC INC GROUP A GLUCOSE 19410 [facility], POST 9 [facility] J GLUCOSE CLINIC OF DOSE [place] [facility] GLUCOSE 15786 [facility], TOLERANCE 9 [facility] J TEST GTT CLINIC [facility] 3 [facility]IMENS [facility] US PREG 98700 [facility], UTERUS 9 [facility] J AFTER 1ST CLINIC OF TRIMEST [place] GESTATION [facility] COMPREHEN 52632 RUBIO BERGERON SIVE 9 [facility] METABOLIC INC INC PANEL CULTURE 37158 RUBIO BERGERON BACTERIAL 9 [facility] INC INC QUANTTATI VE COLONY COUNT URINE URNLS DIP 16176 [facility] BERGERON 9 [facility] STICK/TAB INC INC LET REAGENT AUTO MICROSCOP Y BLOOD 71215 RUBIO BERGERON COUNT 9 [facility] COMPLETE INC INC AUTO&[place] [address] RUBIO BERGERON ESTRIOL 9 [facility] INC INC GONADOTRO 60621 RUBIO BERGERON PIN 9 [facility] CHORIONIC INC INC QUANTITAT STALIN ALPHA-FET 40016 RUBIO BERGERON OPROTEIN 9 [facility] SERUM INC INC IADNA 62580 [facility] [place] 9 [facility] INC GONORRHOE AE AMPLIFIED PROBE TQ IADNA 33326 [facility] CHLAMY[place]IA 9 [facility] INC TRACHOMAT [place] P[place] 30798 FABIANO HOLTPEL, UTERUS 9 KRYS Cerrato REAL TIME W/IMAGE DCMTN TRANSVAG [place] PREG 02677 [facility], UTERUS 9 [facility] J REAL TIME CLINIC OF W/IMAGE DCMTN [place] TRANSVAG [facility] URINE 60440 [facility], 9 [facility] J TEST CLINIC [facility]UAL [facility] METHS OBSTETRIC 30382 RUBIO BERGERON PANEL 9 [facility] INC INC IADNA 10597 [facility] [place] 9 [facility] INC GONORRHOE AE AMPLIFIED PROBE TQ IADNA 04574 [facility] [place] INC TRACHOMAT [place] [address] [facility] NON-IMMUN 9 [facility] OLOGIC OTH/THN CYTOPATHI C CYTP C/V 07510 [facility] AUTO THIN 9 [facility] INC LYR PREPJ SCR MNL RESCR PHYS GONADOTRO 92700 RUBIO BERGERON PIN 9 [facility] CHORIONIC INC INC QUANTITAT STALIN GONADOTRO 43323 RUBIO BERGERON PIN 9 [facility] CHORIONIC INC INC QUANTITAT STALIN BLOOD 73111 RUBIO BERGERON COUNT 9 [facility] COMPLETE INC INC AUTO&AUTO DIFRNTL WBC URNLS DIP 09085 RUBIO BERGERON 9 [facility] STICK/TAB INC INC LET REAGENT AUTO MICROSCOP Y URINE 69168 RUBIO BERGERON 9 [facility] TEST INC INC VISUAL COLOR CMPRSN METHS CULTURE 69966 RUBIO BERGERON BACTERIAL 9 [facility] INC INC QUANTTATI VE COLONY COUNT URINE INJ J1055 [facility] RUBIO MDRXYPRGE [address] [place] [address] ACTAT BANK ACCT CNTRACPT USE 150 MG INJ [id number] [facility] RUBIO MDRXYPRGE [address] [place] [address] ACTAT BANK ACCT CNTRACPT USE 150 MG INJ [id number] [facility]/CO RUBIO MDRXYPRGE [address] [place] [address] ACTAT BANK ACCT CNTRACPT USE 150 MG Encounters Encounter Start End Date Code Location Performer Type Date [facility] RUBIO - 7 7 [facility] 23956 [facility] EVANS OUTPATIEN 7 7 PHYSICIAN T VISIT S GROUP 15 MINUTES HOSPITAL RUBIO [facility] 6 6 [facility] T OFF[facility] 31385 [facility] FRYMAN OUTPATIEN 6 6 PHYSICIAN EUG T VISIT S GROUP 15 MINUTES OFFICE 99290 [facility] PENALOZA OUTPATIEN 6 6 PHYSICIAN STONE T VISIT S GROUP PA-C KAYLA 15 MINUTES OFFICE 46646 [facility] JORDIN OUTPATIEN 6 6 PHYSICIAN AUDRA T VISIT S GROUP 25 MINUTES OFFICE 75026 [facility] FRYMAN OUTPATIEN 6 6 PHYSICIAN EUG T VISIT S GROUP 10 MINUTES [facility] RUBIO - 6 6 [facility] OUTPATIEN INC T OFFICE 68411 [facility] FRYMAN OUTPATIEN 6 6 PHYSICIAN EUG T VISIT S GROUP 15 MINUTES OFFICE 11378 [facility] ROBERTA OUTPATIEN 6 6 PHYSICIAN AUDRA T VISIT S GROUP 25 MINUTES OFFICE 07488 RUBIO GRANADOS OUTPATIEN 5 5 [facility] T VISIT HOSPITAL 10 MINUTES OFFICE 57998 RUBIO TYSON JOE OUTPATIEN 5 5 [facility] 10 MINUTES OFFICE 51218 A Domo HAROLA OUTPATIEN 5 5 JESSA MAGALLON JEA T VISIT [facility] 15 MINUTES OFFICE 83139 RUBIO GRANADOS OUTPATIEN 5 5 [facility] T VISIT [facility] 15 MINUTES PERIODIC 51219 [facility] PREVENTIV 5 5 PHYSICIAN E MED EST S GROUP PATIENT 18-39 YRS OFFICE 31040 Ashly VARELA OUTPATIEN 5 5 JESSA MAGALLON JEA T VISIT PSC 15 MINUTES HOSPITAL RUBIO - 4 4 [facility] INPATIENT INC OFFICE 34090 [facility] EVANS OUTPATIEN 4 4 KASHIF KASHIF T VISIT 15 MINUTES OFFICE 45390 [facility] EVANS OUTPATIEN 4 4 KASHIF KASHIF T VISIT 15 MINUTES HOSPITAL RUBIO - 4 4 [facility] OUTPATIEN [facility] RUBIO - 4 4 [facility] OUTPATIEN INC [facility]OSPITAL RUBIO - 4 4 [facility] OUTPATIEN INC T OFFICE 93051 [facility]ATH[facility] EVANS OUTPATIEN 4 4 KASHIF KASHIF T VISIT 15 MINUTES HOSPITAL RUBIO - 4 4 [facility] OUTPATIEN INC T OFFICE 11999 NATHAN EVANS OUTPATIEN 4 4 KASHIF KASHIF T VISIT 15 MINUTES OFFICE 71922 [facility]ANS OUTPATIEN 4 4 KASHIF KASHIF T VISIT 15 MINUTES HOSPITAL RUBIO - 4 4 [facility] OUTPATIEN INC T OFFICE 32130 [facility]ANS OUTPATIEN 4 4 KSAHIF KASHIF T VISIT 15 MINUTES OFFICE 57921 NATHAN EVANS OUTPATIEN 4 4 KASHIF KASHIF T VISIT 15 MINUTES HOSPITAL [facility] - 4 4 [facility] T [facility]PITAL RUBIO - 4 4 [facility] OUTPATIEN INC HOSPITAL RUBIO - 4 4 [facility] OUTPATIEN [facility] T OFFICE 26106 NATHAN EVANS OUTPATIEN 4 4 KASHIF KASHIF T VISIT 15 MINUTES OFFICE 28131 NATHAN EVANS OUTPATIEN 4 4 KASHIF KASHIF T VISIT 15 MINUTES OFFICE 14081 NATHAN EVANS OUTPATIEN 4 4 KASHIF KASHIF T VISIT 15 MINUTES OFFICE 88087 NATHAN EVANS OUTPATIEN 4 4 KASHIF KASHIF T VISIT 5 MINUTES OFFICE 63377 NATHAN EVANS OUTPATIEN 4 4 KASHIF KASHIF T VISIT 15 MINUTES HOSPITAL [facility]ENTRAL - 4 4 [facility] OUT[facility] HOSP T OFFICE 13962 [facility]ELSE[facility] COLE CONSULTAT 4 4 HERBIE HERBIE ION NEW/ESTAB PATIENT 15 MIN OFFICE 13570 [facility]ATH[facility]ANS OUTPATIEN 4 4 KASHIF KASHIF T VISIT 15 MINUTES HOSPITAL RUBIO - 4 4 [facility] OUTPATIEN INC T EMERGENCY 36030 ALFARIS ALFARIS 4 4 [facility] DEPART[facility] T VISIT HIGH/URGE NT SEVERITY EMERGENCY 59150 RUBIO 4 4 [facility] DEPARTMEN INC T VISIT LOW/MODER SEVERITY HOSPITAL RUBIO - 4 4 [facility] OUTPATIEN INC T OFFICE 34626 [facility] OUTPATIEN 4 4 KASHIF KASHIF T VISIT 15 MINUTES OFFICE 01536 [facility] OUTPATIEN 4 4 PHYSICIAN T VISIT S GROUP 10 MINUTES OFFICE 59544 NATHAN DANIELLEE OUTPATIEN 4 4 KASHIF KASHIF T VISIT 15 MINUTES OFFICE 96921 [facility] OUTPATIEN 4 4 KASHIF KASHIF T VISIT 25 MINUTES EMERGENCY 54526 MARIIA CHANTEL MARIIA CHANTEL 4 4 DEPARTMEN T VISIT HIGH/URGE NT SEVERITY EMERGENCY 10370 RUBIO 4 4 [facility] DEPARTMEN INC T VISIT MODERATE SEVERITY HOSPITAL RUBIO - 4 4 [facility] OUTPATIEN INC T HOSPITAL RUBIO - 4 4 [facility] OUTPATIEN INC T EMERGENCY 67348 RUBIO 4 4 [facility] DEPARTMEN INC T VISIT MODERATE SEVERITY EMERGENCY 53982 SOKAN BAB SOKAN BAB DEPT 4 4 VISIT HIGH SEVERITY& THREAT FUN OFFICE 01313 ANA MARÍA OVIEDO OUTPATIEN 3 3 T VISIT 15 MINUTES OFFICE 18955 ANA MARÍA OVIEDO OUTPATIEN 3 3 T VISIT 15 MINUTES OFFICE 92314 [facility] OUTPATIEN 3 3 PHYSICIAN T VISIT S GROUP 15 MINUTES OFFICE 00444 [facility] OUTPATIEN 3 3 PHYSICIAN T VISIT S GROUP 15 MINUTES EMERGENCY 17965 JORDIN BRENNER 3 3 [facility] DEPARTMEN T VISIT HIGH/URGE NT SEVERITY HOSPITAL RUBIO - 3 3 [facility] OUTPATIEN INC T EMERGENCY 88282 RUBIO 3 3 [facility] DEPARTMEN INC T VISIT LOW/MODER SEVERITY OFFICE 10543 [facility] OUTPATIEN 3 3 PHYSICIAN T VISIT S GROUP 15 MINUTES OFFICE 56692 ANA MARÍA PREET ANA MARÍA PREET OUTPATIEN 3 3 T VISIT 15 MINUTES OFFICE 79671 [facility] OUTPATIEN 3 3 PHYSICIAN T VISIT S GROUP 15 MINUTES OFFICE 28983 NILSA NILSA OUTPATIEN 2 2 [place] T VISIT 15 MINUTES OFFICE 46944 NILSA NILSA OUTPATIEN 2 2 [place] T VISIT 15 MINUTES OFFICE 12686 MARILYN MARILYN OUTPATIEN 2 2 KESHIA KESHIA T VISIT 15 MINUTES OFFICE 61428 NILSA NILSA OUTPATIEN 2 2 [place] NYAS[place] T NEW 20 MINUTES EMERGENCY 02048 RUBIO 2 2 [facility] DEPARTMEN INC T VISIT LOW/MODER SEVERITY HOSPITAL RUBIO - 2 2 [facility] OUTPATIEN INC T EMERGENCY 11174 KEVIN BROWN 2 2 III CAITLIN III CA[facility] DEPARTMEN T VISIT MODERATE SEVERITY HOSPITAL RUBIO - 2 2 [facility] OUTPATIEN INC T EMERGENCY 71817 RUBIO 2 2 [facility] DEPARTMEN INC T VISIT LIMITED/M INOR PROB EMERGENCY 28466 KEVIN BROWN 2 2 III CAITLIN III CA[facility]LIN DEPARTMEN T VISIT HIGH/URGE NT SEVERITY OFFICE 92167 MARILYN MARILYN OUTPATIEN 1 1 KESHIA KESHIA T VISIT 15 MINUTES OFFICE 53737 [facility] OUT[facility] 1 1 [facility] T VISIT CLINIC OF 15 MADY MINUTES OFFICE 40473 RAKESH CAMERON OUTPATIEN 1 1 LACIE LACIE T NEW 10 MINUTES OFFICE 98736 [facility] OUTPATIEN 1 1 [facility] T VISIT CLINIC OF 25 MADY MINUTES OFFICE 69582 [facility] OUTPATIEN 1 1 [facility] T VISIT CLINIC OF 15 MADY MINUTES HOSPITAL RUBIO - 1 1 [facility] INPATIENT INC OFFICE 34001 [facility] OUTPATIEN 1 1 [facility] T VISIT CLINIC OF 15 MADY MINUTES HOSPITAL RUBIO - 1 1 [facility] OUTPATIEN [facility] OFFICE 54992 [facility] OUTPATIEN 1 1 [facility]ALTH [facility]ASH[facility] T VISIT CLINIC OF 15 MADY MINUTES HOSPITAL RUBIO [facility] 1 1 [facility] OUTPATIEN [facility] RUBIO - 1 1 [facility] OUTPATIEN [facility] OFFICE 21276 [facility] OUTPATIEN 1 1 [facility] KASH[facility] T VISIT CLINIC OF 15 MADY MINUTES [facility] RUBIO - 1 1 [facility] OUTPATIEN [facility]PITAL RUBIO - 1 1 [facility] INPATIENT INC OFFICE 99514 [facility] OUTPATIEN 1 1 [facility] T VISIT CLINIC OF 15 MADY MINUTES OFFICE 27614 [facility] OUTPATIEN 1 1 [facility]ASH[facility] T VISIT CLINIC OF 15 MADY MINUTES OFFICE 62637 [facility] OUTPATIEN 1 1 [facility]ALTH KASH[facility] T VISIT 5 CLINIC OF MINUTES MADY OFFICE 65493 [facility] OUTPATIEN 1 1 [facility] T VISIT CLINIC OF 15 MADY MINUTES OFFICE 63287 A C MARILYN OUTPATIEN 1 1 JESSA HI KESHIA T VISIT PSC 15 MINUTES OFFICE 27829 [facility] OUTPATIEN 1 1 [facility] T VISIT CLINIC OF 15 MADY MINUTES OFFICE 34201 [facility] OUTPATIEN 1 1 [facility] T VISIT CLINIC OF 15 MADY MINUTES EMERGENCY 82889 GHASSAN BRENNER DEPT 0 0 EMERGENCY AUDRA VISIT SERVICES HIGH SEVERITY& THREAT [facility] RUBIO - 0 0 [facility] OUTPATIEN INC T OFFICE 48675 [facility] OUTPATIEN 0 0 [facility]ALTH [facility]ASH[facility] T VISIT CLINIC OF 15 MADY MINUTES OFFICE 42004 [facility] OUTPATIEN 0 0 [facility]ALTH [facility]ASH[facility] T VISIT CLINIC OF 15 MADY MINUTES OFFICE 52707 [facility] OUTPATIEN 0 0 [facility]ASH[facility] T VISIT CLINIC OF 15 MADY MINUTES EMERGENCY 28204 RUBIO 0 0 [facility] DEPARTMEN INC T VISIT LOW/MODER SEVERITY EMERGENCY 69103 [facility] [address] 0 0 [facility] HIGH/URGE NT SEVERITY [facility] RUBIO - 0 0 [facility] OUTPATIEN INC [facility]OSPITAL RUBIO - 0 0 [facility] OUTPATIEN INC T EMERGENCY 34387 RUBIO 0 0 [facility] DEPARTMEN INC T VISIT MODERATE SEVERITY HOSPITAL RUBIO - 0 0 [facility] OUTPATIEN INC T EMERGENCY 03107 GHASSAN BRENNER, 0 0 EMERGENCY [facility] SERVICES T VISIT HIGH/URGE ASSOCIATE NT S SEVERITY [facility] RUBIO - 0 0 [facility] INPATIENT INC OFFICE 68903 [facility], OUTPATIEN 0 0 [facility] S[facility]I J T VISIT CLINIC OF 15 MINUTES [facility] OFFICE 41891 [facility], OUTPATIEN 0 0 [facility] J T VISIT CLINIC OF 15 MINUTES [facility] RUBIO - 0 0 [facility] OUTPATIEN INC T OFFICE 61841 [facility], OUTPATIEN 0 0 [facility] J T VISIT CLINIC OF 15 MINUTES [facility] OFFICE 58380 [facility], OUTPATIEN 9 9 [facility]ALI J T VISIT CLINIC OF 15 MINUTES [facility] OFFICE 19336 [facility], OUTPATIEN 9 9 [facility] J T VISIT CLINIC OF 15 MINUTES [facility] RUBIO - 9 9 [facility] OUTPATIEN INC T EMERGENCY 27413 GHASSAN BROWN 9 9 [facility] T VISIT MODERATE ASSOCIATE SEVERITY S OFFICE 67425 [facility], OUTPATIEN 9 9 [facility] J T VISIT CLINIC OF 15 MINUTES [facility] OFFICE 23438 [facility], OUTPATIEN 9 9 [facility] S[facility]ALI J T VISIT CLINIC OF 15 MINUTES [facility] OFFICE 10314 [facility], OUTPATIEN 9 9 HEALTH SONALI J T VISIT 5 CLINIC OF MINUTES [facility] OFFICE 33072 [facility], OUTPATIEN 9 9 [facility]ALTH SONALI J T VISIT CLINIC OF 15 MINUTES [facility] OFFICE 39509 [facility], OUTPATIEN 9 9 [facility]ALTH S[facility]I J T VISIT CLINIC OF 15 MINUTES [facility] EMERGENCY 47444 GHASSAN RAMIREZ, 9 9 EMERGENCY FABI P [facility] SERVICES T VISIT HIGH/URGE ASSOCIATE NT S SEVERITY HOSPITAL RUBIO - 9 9 [facility] OUTPATIEN INC T EMERGENCY 32437 [facility]BIO [address] [facility] V[facility] LIMITED/M INOR PROB EMERGENCY 38091 RUBIO 9 9 [facility] DEPARTMEN INC T VISIT MODERATE SEVERITY OFFICE 85255 [facility], OUTPATIEN 9 9 [facility]I J T VISIT CLINIC OF 15 MINUTES [facility] RUBIO - 9 9 [facility] OUTPATIEN INC T OFFICE 43762 [facility], OUTPATIEN 9 9 [facility] Williamson T VISIT CLINIC OF 15 MINUTES [facility] RUBIO - 9 9 [facility] OUTPATIEN INC T EMERGENCY 15178 GHASSAN NICHOLSGAN, 9 9 EMERGENCY [facility] SERVICES T VISIT MODERATE ASSOCIATE SEVERITY S EMERGENCY 83783 RBUIO 9 9 [facility] DEPARTMEN INC T VISIT LIMITED/M INOR PROB OFFICE 74965 SILVIA CANTU 9 9 KRYS Cerrato T VISIT 15 MINUTES OFFICE 35443 SILVIA CANTU 9 9 KRYS Cerrato T VISIT 15 MINUTES OFFICE 48535 SILVIA CANTU 9 9 KRYS Cerrato T VISIT 15 MINUTES [facility] - 9 9 [facility] OUT[facility] T [facility] - 9 9 [facility] OUT[facility] T EMERGENCY [id number] [facility] 9 9 [facility] T VISIT MODERATE SEVERITY [facility] - 9 9 [facility] T OFFICE 71436 [facility] 10 BANK ACCT MINUTES OFFICE 70822 [facility] OUTPATIEN 8 8 [facility] VISIT [facility] 10 BANK ACCT MINUTES OFFICE 93544 [facility] OUTPATIEN 8 8 [facility] T VISIT [facility] 10 BANK ACCT MINUTES
--- OUTSIDE RECORDS SUMMARY | 2017-03-20 13:34 | External Medical Summary Rpt ---
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 RUBIO BERGERON PIN 9 [facility] [employer] INC INC QUANTITAT STALIN ALPHA-FET 14184 RUBIO BERGERON OPROTEIN 9 [facility] SERUM INC INC IADNA 07491 [facility] [place] 9 [facility] INC GONORRHOE AE AMPLIFIED PROBE TQ IADNA 19533 [facility] [place] 9 [facility] INC TRACHOMAT [place] 84696 FABIANO HOLTPEL, UTERUS 9 KRYS Cerrato REAL TIME W/IMAGE DCMTN [place] PREG 90256 [facility], UTERUS 9 [facility] J REAL TIME CLINIC OF W/IMAGE DCMTN [place] TRANSVAG [facility] URINE 13911 [facility], 9 [facility] J TEST CLINIC OF VISUAL [facility] METHS OBSTETRIC 63595 RUBIO BERGERON PANEL 9 [facility] INC INC IADNA 60152 [facility] [place] 9 [facility] INC GONORRHOE AE AMPLIFIED PROBE TQ IADNA 48518 [facility] [place] 9 [facility] INC TRACHOM[place] [address] [facility] OF [facility] OF NON-IMMUN 9 [facility] OLOGIC OTH/THN CYTOPATHI C CYTP C/V 29473 [facility] OF AUTO THIN 9 [facility] INC LYR PREPJ SCR MNL RESCR PHYS GONADOTRO 36220 RUBIO BERGERON PIN 9 [facility] [employer] [facility] INC QUANTITAT STALIN GONADOTRO 49514 RUBIO BERGERON PIN 9 [facility] CHORIONIC INC INC QUANTITAT STALIN BLOOD 57768 RUBIO BERGERON COUNT 9 [facility] COMPLETE INC INC AUTO&AUTO DIFRNTL WBC URNLS DIP 54829 RUBIO BERGERON 9 [facility] STICK/TAB INC INC LET REAGENT AUTO MICROSCOP Y URINE 67293 RUBIO BERGERON 9 [facility] TEST INC INC VISUAL COLOR CMPRSN METHS CULTURE 86020 RUBIO BERGERON BACTERIAL 9 [facility] INC INC QUANTTATI VE COLONY COUNT URINE INJ J1055 [facility] RUBIO MDRXYPRGE [address] [place] [address] ACTAT BANK ACCT CNTRACPT USE 150 MG INJ J1055 [facility] RUBIO MDRXYPRGE [address] [place] [address] ACTAT BANK ACCT CNTRACPT USE 150 MG INJ J1055 [facility]/CO RUBIO MDRXYPRGE [address] [place] [address] ACTAT BANK ACCT CNTRACPT USE 150 MG Encounters Encounter Start End Date Code Location Performer Type Date [facility] RUBIO - 7 7 [facility] T OFFICE 77245 [facility] EVANS OUTPATIEN 7 7 PHYSICIAN T VISIT S GROUP 15 MINUTES HOSPITAL RUBIO - 6 6 [facility] T OFFICE 88648 [facility] FRYMAN OUTPATIEN 6 6 PHYSICIAN EUG T VISIT S GROUP 15 MINUTES OFFICE 26442 [facility] PENALOZA OUTPATIEN 6 6 PHYSICIAN STONE T VISIT S GROUP PA-C KAYLA 15 MINUTES OFFICE 77927 [facility] JORDIN OUTPATIEN 6 6 PHYSICIAN AUDRA T VISIT S GROUP 25 MINUTES OFFICE 91718 [facility] FRYMAN OUTPATIEN 6 6 PHYSICIAN EUG T VISIT S GROUP 10 MINUTES [facility] RUBIO - 6 6 [facility] OUTPATIEN INC T OFFICE 52406 [facility] FRYMAN OUTPATIEN 6 6 PHYSICIAN EUG T VISIT S GROUP 15 MINUTES OFFICE 46285 [facility] ROBERTA OUTPATIEN 6 6 PHYSICIAN AUDRA T VISIT S GROUP 25 MINUTES OFFICE 86055 RUBIO GRANADOS OUTPATIEN [address] [facility] T VISIT HOSPITAL 10 MINUTES OFFICE 03620 RUBIO TYSON JOE OUTPATIEN 5 5 [facility] 10 MINUTES OFFICE 96671 A Domo HAROLA OUTPATIEN 5 5 JESSA MAGALLON JEA T VISIT [facility] 15 MINUTES OFFICE 84200 RUBIO GRANADOS OUTPATIEN [address] [facility] T VISIT [facility] 15 MINUTES PERIODIC 93007 [facility] PREVENTIV 5 5 PHYSICIAN E MED EST S GROUP PATIENT 18-39 YRS OFFICE 00251 Ashly VARELA OUTPATIEN 5 5 JESSA MAGALLON JEA T VISIT PSC 15 MINUTES HOSPITAL RUBIO - 4 4 [facility] INPATIENT INC OFFICE 35796 [facility]ATH[facility] EVANS OUTPATIEN 4 4 KASHIF KASHIF T VISIT 15 MINUTES OFFICE 58330 NATH[facility] EVANS OUTPATIEN 4 4 KASHIF KASHIF T VISIT 15 MINUTES HOSPITAL RUBIO - 4 4 [facility] OUTPAT[facility]EN [facility] RUBIO - 4 4 [facility] OUTPATIEN INC [facility] RUBIO - 4 4 [facility] OUTPATIEN INC T OFFICE 84585 NATHAN EVANS OUTPATIEN 4 4 KASHIF KASHIF T VISIT 15 MINUTES HOSPITAL RUBIO - 4 4 [facility] OUTPATIEN INC T OFFICE 09289 NATHAN EVANS OUTPATIEN 4 4 KASHIF KASHIF T VISIT 15 MINUTES OFFICE 09273 NATHAN EVANS OUTPATIEN 4 4 KASHIF KASHIF T VISIT 15 MINUTES HOSPITAL RUBIO - 4 4 [facility] OUTPATIEN INC T OFFICE 41708 NATHAN EVANS OUTPATIEN 4 4 KASHIF KASHIF T VISIT 15 MINUTES OFFICE 98819 NATHAN EVANS OUTPATIEN 4 4 KASHIF KASHIF T VISIT 15 MINUTES HOSPITAL [facility] - 4 4 [facility] T HOSPITAL RUBIO - 4 4 [facility] RUBIO - 4 4 [facility] OUTPATIEN [facility] T OFFICE 67901 NATHAN EVANS OUTPATIEN 4 4 KASHIF KASHIF T VISIT 15 MINUTES OFFICE 69833 NATHAN EVANS OUTPATIEN 4 4 KASHIF KASHIF T VISIT 15 MINUTES OFFICE 53940 NATHAN EVANS OUTPATIEN 4 4 KASHIF KASHIF T VISIT 15 MINUTES OFFICE 36293 NATHAN EVANS OUTPATIEN 4 4 KASHIF KASHIF T VISIT 5 MINUTES OFFICE 02478 NATHAN EVANS OUTPATIEN 4 4 KASHIF AKSHIF T VISIT 15 MINUTES HOSPITAL [facility]EN[facility]AL - 4 4 [facility] OUTPATIEN HOSP T OFFICE 57993 KELSEY COLE CONSULTAT 4 4 HERBIE HERBIE ION NEW/ESTAB PATIENT 15 MIN OFFICE 38444 NATH[facility]ANS OUTPATIEN 4 4 KASHIF KASHIF T VISIT 15 MINUTES HOSPITAL RUBIO - 4 4 [facility] OUTPATIEN INC T EMERGENCY 47274 ALFARIS ALFARIS 4 4 [facility] DEPARTMEN T VISIT HIGH/URGE NT SEVERITY EMERGENCY 63191 RUBIO 4 4 [facility] DEPARTMEN INC T VISIT LOW/MODER SEVERITY HOSPITAL RUBIO - 4 4 [facility] OUTPATIEN INC T OFFICE 39264 EVANS EVANS OUTPATIEN 4 4 KASHIF KASHIF T VISIT 15 MINUTES OFFICE 95780 [facility] OUTPATIEN 4 4 PHYSICIAN T VISIT S GROUP 10 MINUTES OFFICE 50787 NATHAN DANIELLEE OUTPATIEN 4 4 KASHIF KASHIF T VISIT 15 MINUTES OFFICE 08554 [facility]ANS OUTPATIEN 4 4 KASHIF KASHIF T VISIT 25 MINUTES EMERGENCY 28769 MARIIA CHANTEL MARIIA CHANTEL 4 4 DEPARTMEN T VISIT HIGH/URGE NT SEVERITY EMERGENCY 40806 RUBIO 4 4 [facility] DEPARTMEN INC T VISIT MODERATE SEVERITY HOSPITAL RUBIO - 4 4 [facility] OUTPATIEN INC T HOSPITAL RUBIO - 4 4 [facility] OUTPATIEN INC T EMERGENCY 54479 RUBIO 4 4 [facility] DEPARTMEN INC T VISIT MODERATE SEVERITY EMERGENCY 36106 SOKAN BAB SOKAN BAB DEPT 4 4 VISIT HIGH SEVERITY& THREAT FUN OFFICE 80564 ANA MARÍA OVIEDO OUTPATIEN 3 3 T VISIT 15 MINUTES OFFICE 26199 ANA MARÍA OVIEDO OUTPATIEN 3 3 T VISIT 15 MINUTES OFFICE 28321 [facility] OUTPATIEN 3 3 PHYSICIAN T VISIT S GROUP 15 MINUTES OFFICE 90254 [facility] OUTPATIEN 3 3 PHYSICIAN T VISIT S GROUP 15 MINUTES EMERGENCY 95283 JORDIN BRENNER 3 3 [facility] DEPARTMEN T VISIT HIGH/URGE NT SEVERITY HOSPITAL RUBIO - 3 3 [facility] OUTPATIEN INC T EMERGENCY 84942 RUBIO 3 3 [facility] DEPARTMEN INC T VISIT LOW/MODER SEVERITY OFFICE 99059 [facility] OUTPATIEN 3 3 PHYSICIAN T VISIT S GROUP 15 MINUTES OFFICE 10493 ANA MARÍA PREET ANA MARÍA PREET OUTPATIEN 3 3 T VISIT 15 MINUTES OFFICE 12700 [facility] OUTPATIEN 3 3 PHYSICIAN T VISIT S GROUP 15 MINUTES OFFICE 33977 NILSA NILSA OUTPATIEN 2 2 [place] NYASIA T VISIT 15 MINUTES OFFICE 21863 NILSA NILSA OUTPATIEN 2 2 [place] T VISIT 15 MINUTES OFFICE 45888 MARILYN MARILYN OUTPATIEN 2 2 KESHIA KESHIA T VISIT 15 MINUTES OFFICE 76581 NILSA NILSA OUTPATIEN 2 2 [place] NYASIA T NEW 20 MINUTES EMERGENCY 33777 RUBIO 2 2 [facility] DEPARTMEN INC T VISIT LOW/MODER SEVERITY HOSPITAL RUBIO - 2 2 [facility] OUTPATIEN INC T EMERGENCY 43733 KEVIN BROWN 2 2 III CAITLIN III CAITLIN DEPARTMEN T VISIT MODERATE SEVERITY HOSPITAL RUBIO - 2 2 [facility] OUTPATIEN INC T EMERGENCY 78080 RUBIO 2 2 [facility] DEPARTMEN INC T VISIT LIMITED/M INOR PROB EMERGENCY 40488 KEVIN BROWN 2 2 III CAITLIN III CAITLIN DEPARTMEN T VISIT HIGH/URGE NT SEVERITY OFFICE 14099 MARILYN MARILYN OUTPATIEN 1 1 KESHIA KESHIA T VISIT 15 MINUTES OFFICE 77678 [facility] OUT[facility] 1 1 HEALTH KASHIF T VISIT CLINIC OF 15 MADY MINUTES OFFICE 17443 RAKESH CAMERON OUTPATIEN 1 1 LACIE LACIE T NEW 10 MINUTES OFFICE 98230 [facility] OUTPATIEN 1 1 [facility]ALTH KASHIF T VISIT CLINIC OF 25 MADY MINUTES OFFICE 52223 [facility] OUTPATIEN 1 1 [facility]ALTH KASHIF T VISIT CLINIC OF 15 MADY MINUTES HOSPITAL RUBIO - 1 1 [facility] INPATIENT INC OFFICE 11741 [facility] OUTPATIEN 1 1 HEALTH KASHIF T VISIT CLINIC OF 15 MADY MINUTES HOSPITAL RUBIO - 1 1 [facility] OUTPATI[facility] OFFICE 29565 [facility] OUTPATIEN 1 1 HEALTH KASHIF T VISIT CLINIC OF 15 MADY MINUTES HOSPITAL RUBIO - 1 1 [facility] OUTPATIEN [facility] RUBIO - 1 1 [facility] OUTPATIEN [facility] OFFICE 23723 [facility] OUTPATIEN 1 1 HEALTH KASHIF T VISIT CLINIC OF 15 MADY MINUTES [facility] RUBIO - 1 1 [facility] OUTPATIEN [facility] RUBIO - 1 1 [facility] INPATIENT INC OFFICE 49500 [facility] OUTPATIEN 1 1 HEALTH KASHIF T VISIT CLINIC OF 15 MADY MINUTES OFFICE 79047 [facility] OUTPATIEN 1 1 [facility] KASH[facility] T VISIT CLINIC OF 15 MADY MINUTES OFFICE 89583 [facility] OUTPATIEN 1 1 HEALTH KASHIF T VISIT 5 CLINIC OF MINUTES MADY OFFICE 90904 [facility] OUTPATIEN 1 1 [facility]ALTH KASHIF T VISIT CLINIC OF 15 MADY MINUTES OFFICE 21018 A C MARILYN OUTPATIEN 1 1 JESSA CA KESHIA T VISIT PSC 15 MINUTES OFFICE 75984 [facility] OUTPATIEN 1 1 [facility]ALTH KASH[facility] T VISIT CLINIC OF 15 MADY MINUTES OFFICE 58675 [facility] OUTPATIEN 1 1 [facility] T VISIT CLINIC OF 15 MADY MINUTES EMERGENCY 74371 GHASSAN BRENNER DEPT 0 0 EMERGENCY AUDRA VISIT SERVICES HIGH SEVERITY& THREAT [facility] RUBIO - 0 0 [facility] OUTPATIEN INC T OFFICE 74847 [facility] OUTPATIEN 0 0 HEALTH KASHIF T VISIT CLINIC OF 15 MADY MINUTES OFFICE 47437 [facility] OUTPATIEN 0 0 HEALTH KASHIF T VISIT CLINIC OF 15 MADY MINUTES OFFICE 82166 [facility] OUTPATIEN 0 0 [facility]ALTH KASH[facility] T VISIT CLINIC OF 15 MADY MINUTES EMERGENCY 72429 RUBIO 0 0 [facility] DEPARTMEN INC T VISIT LOW/MODER SEVERITY EMERGENCY 82035 GHASSAN BOX 0 0 [facility] HIGH/URGE NT SEVERITY [facility]OSP[facility] RUBIO - 0 0 [facility] OUTPATIEN INC [facility] RUBIO - 0 0 [facility] OUTPATIEN INC T EMERGENCY 19931 RUBIO 0 0 [facility] DEPARTMEN INC T VISIT MODERATE SEVERITY HOSPITAL RUBIO - 0 0 [facility] OUTPATIEN INC T EMERGENCY 44301 GHASSAN BRENNER, 0 0 EMERGENCY [facility] SERVICES T VISIT HIGH/URGE ASSOCIATE NT S SEVERITY [facility] RUBIO - 0 0 [facility] INPATIENT INC OFFICE 04490 [facility], OUTPATIEN 0 0 [facility] J T VISIT CLINIC OF 15 MINUTES [facility] OFFICE 22859 [facility], OUTPATIEN 0 0 [facility] J T VISIT CLINIC OF 15 MINUTES [facility] RUBIO - 0 0 [facility] OUTPATIEN INC T OFFICE 12242 [facility], OUTPATIEN 0 0 [facility] J T VISIT CLINIC OF 15 MINUTES [facility] OFFICE 13295 [facility], OUTPATIEN 9 9 [facility] J T VISIT CLINIC OF 15 MINUTES [facility] OFFICE 75395 [facility], OUTPATIEN 9 9 [facility] J T VISIT CLINIC OF 15 MINUTES [facility] RUBIO - 9 9 [facility] OUTPATIEN INC T EMERGENCY 55617 GHASSAN BROWN 9 9 [facility] TOYIN T VISIT MODERATE ASSOCIATE SEVERITY S OFFICE 20806 [facility], OUTPATIEN 9 9 [facility] J T VISIT CLINIC OF 15 MINUTES [facility] OFFICE 74509 [facility], OUTPATIEN 9 9 [facility] J T VISIT CLINIC OF 15 MINUTES [facility] OFFICE 86771 [facility], OUTPATIEN 9 9 [facility] J T VISIT 5 CLINIC OF MINUTES [facility] OFFICE 81399 [facility], OUTPATIEN 9 9 [facility] J T VISIT CLINIC OF 15 MINUTES [facility] OFFICE 30458 [facility], OUTPATIEN 9 9 [facility] J T VISIT CLINIC OF 15 MINUTES [facility] EMERGENCY 15974 GHASSAN RAMIREZ, 9 9 EMERGENCY FABI P [facility] SERVICES T VISIT HIGH/URGE ASSOCIATE NT S SEVERITY HOSPITAL RUBIO - 9 9 [facility] OUTPATIEN INC T EMERGENCY 98017 RUBIO 9 9 [facility] VIS[facility] LIMITED/M INOR PROB EMERGENCY 47371 RUBIO 9 9 [facility] DEPARTMEN INC T VISIT MODERATE SEVERITY OFFICE 42696 [facility], OUTPATIEN 9 9 [facility] J T VISIT CLINIC OF 15 MINUTES [facility] RUBIO - 9 9 [facility] OUTPATIEN INC T OFFICE 95923 [facility], OUTPATIEN 9 9 [facility] Williamson T VISIT CLINIC OF 15 MINUTES [facility] RUBIO - 9 9 [facility] OUTPATIEN INC T EMERGENCY 40196 GHASSAN NICHOLSGAN, 9 9 EMERGENCY [facility] SERVICES T VISIT MODERATE ASSOCIATE SEVERITY S EMERGENCY 40474 RUBIO 9 9 [facility] DEPARTMEN INC T VISIT LIMITED/M INOR PROB OFFICE 66940 SILVIA CANTU 9 9 KRYS Cerrato T VISIT 15 MINUTES OFFICE 94573 SILVIA CANTU 9 9 KRYS Cerrato T VISIT 15 MINUTES OFFICE 60635 SILVIA CANTU 9 9 KRYS Cerrato T VISIT 15 MINUTES HOSPITAL RUBIO - 9 9 [facility] OUTPATIEN INC T [facility]OSPITAL RUBIO - 9 9 [facility] OUTPATIEN INC T EMERGENCY 25379 RUBIO 9 9 [facility] DEPARTMEN INC T VISIT MODERATE SEVERITY [facility]OSPITAL RUBIO - 9 9 [facility] OUTPATIEN INC T OFFICE 76780 [facility] OUTPATIEN 8 8 [facility] T VISIT [facility] 10 BANK ACCT MINUTES OFFICE 49698 [facility] RUBIO OUTPATIEN 8 8 [facility] T VISIT [facility] 10 BANK ACCT MINUTES OFFICE 22900 [facility] RUBIO OUTPATIEN 8 8 [facility] T VISIT [facility] 10 BANK ACCT MINUTES
--- OUTSIDE RECORDS SUMMARY | 2017-03-20 13:35 | External Medical Summary Rpt ---
Demographics Preferred Language Rwandan Marital Status Unknown Mandaen Affiliation Unknown Race Unknown Ethnic Group Unknown Author Author , Organization [employer] Address Unknown Phone Unavailable Purpose Continuity of Care Document - through 2016 Immunization No patient found.
--- OUTSIDE RECORDS SUMMARY | 2017-03-20 13:35 | External Medical Summary Rpt ---
Demographics Preferred Language Maldivian Marital Status Unknown Sabianism Affiliation Unknown Race Unknown Ethnic Group Unknown Author Author , Organization [employer] Address Unknown Phone Unavailable Purpose Continuity of Care Document - through 2016 Immunization No patient found.
[2017-03-20] MEDS ORDERED: IBUPROFEN800 MG PO (13:49)
--- NOTE | 2017-03-20 13:52 | Urgent Treatment Center Report ---
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 Location if Accident:Work Onset of symptoms date/time:03/17/17/ or onset unknown for:MEDICAL HX UNKNOWN Have you (or family members/close friends) recently traveled outside the [place]? N If Yes, where/when: Have you had exposure to infectious disease within the past month? TB? Other? Specify: Patient states that she works at [employer] states that she was working Friday when she was dropping a basket in the fryer and felt some pain in her right wrist area. States that ever since she is having pain when she moves the wrist and tries to bend it. ALLERGIES Coded Allergies: morphine (I-ITCHING 01/17/17) History Medical History General CAD? No Angina: No MT: No Hypertension? No Hyperlipidemia? No CHF? No DVT? No PE? No COPD? No Asthma? No Anemia? No GERD? No Gastric ulcers? No GI Bleed? No Hernia? No Thyroid Problems? No Hypothyroidism? No CVA? No Seizures? No Diabetes? No Renal Insuffiency? No UTI? No Stones? No BPH? No GB Disease: No Nephritic Syndrome? No Asplenia? No Hepatitis? No Sickle Cell Disease? No Arthritis? No Migraines? No Cataracts? No Glaucoma? No MRSA? No HIV? No TB? No Anxiety? No Depression? No Cancer? 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 No: respiratory distress. Cardiovascular normal exam, regular rate/rhythm, no peripheral edema Neurologic alert, side laster II-XII nml as tested, normal exam, no motor/sensory deficits, oriented x 3 Medical Decision Making LABS/Meds/Orders Pt receiving controlled substance in ED? No Results/Orders Orders Procedure Date/time Status WRIST-3 VIEWS-RT 03/20 1302 Active Departure Departure Time of Disposition 1348 Disposition DC Home or Self Care(routine) Clinical Impression Primary Impression: Wrist pain Qualifiers: Laterality: right Qualified Code: M25.531 - Pain in right wrist Condition STABLE Referrals Vicenta MAGALLON,Talat Luong (Family): 3 Days-Call Office if no improvement or worsening of symptoms Patient Instructions DI for Wrist Pain Additional Instructions *RICE, Rest the extremity, Ice 15-20 minutes 3-4 times daily, Compress- wear the festus wrap, Elevate the extremity when at rest *Festus wrap is for support and help control swelling, use it except in the shower. Be sure that is not to tight but not to loose either *Elevate as discussed as much as possible to help reduce swelling and pain *Ibuprofen 600-800mg every 6-8 hours as needed for pain an inflammation. If need something more can take Tylenol in between doses of Ibuprofen to help Immediately follow up for new or worsening of symptoms, or no noticeable improvement over the nex 3-5 days Discharge Counseling Counseled pt/family regarding diagnosis, home care, follow up needs Prescriptions Current Visit Scripts Ibuprofen (Ibuprofen 800MG) 800 MG PO QIDP PRN pain #30 TAB at 1358
--- NOTE | 2017-03-20 13:52 | Urgent Treatment Center Report ---
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 Location if Accident:Work Onset of symptoms date/time:03/17/17/ or onset unknown for:MEDICAL HX UNKNOWN Have you (or family members/close friends) recently traveled outside the [place]? N If Yes, where/when: Have you had exposure to infectious disease within the past month? TB? Other? Specify: Patient states that she works at [employer] states that she was working Friday when she was dropping a basket in the fryer and felt some pain in her right wrist area. States that ever since she is having pain when she moves the wrist and tries to bend it. ALLERGIES Coded Allergies: morphine (I-ITCHING 01/17/17) History Medical History General CAD? No Angina: No PR: No Hypertension? No Hyperlipidemia? No CHF? No DVT? No PE? No COPD? No Asthma? No Anemia? No GERD? No Gastric ulcers? No GI Bleed? No Hernia? No Thyroid Problems? No Hypothyroidism? No CVA? No Seizures? No Diabetes? No Renal Insuffiency? No UTI? No Stones? No BPH? No GB Disease: No Nephritic Syndrome? No Asplenia? No Hepatitis? No Sickle Cell Disease? No Arthritis? No Migraines? No Cataracts? No Glaucoma? No MRSA? No HIV? No TB? No Anxiety? No Depression? No Cancer? No Immunization HX DT/Tetanus 5-10 YRS Flu 2013-FSN Pneumonia Refuses Surgical Hx Previous Surgery?Y [employer]AL [employer] Hx LMP On Depo Med-LMP Unknown Social History Smoking Hx Smoker: Never Smoker Tobacco: No Alcohol Alcohol: No Review of Systems All Other Systems Reviewed and Negative Comment Right wrist pain since friday when she was at work and began to feel pain in her right wrist as she dropped a basket into the fryer Physical Exam Vital Signs Vital Signs Date Time Temp Pulse Resp B/P Pulse O2 O2 Flow FiO2 Ox Delivery Rate 03/20 1257 97.7 94 18 133/75 98 General Appearance normal appearance, WD/WN, no apparent distress Respiratory Status Yes: trachea midline, chest symmetrical, non tender chest. No: respiratory distress. 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 No Results/Orders Orders Procedure Date/time Status WRIST-3 VIEWS-RT 03/20 1302 Active Departure Departure Time of Disposition 1348 Disposition DC Home or Self Care(routine) Clinical Impression Primary Impression: Wrist pain Qualifiers: Laterality: right Qualified Code: M25.531 - Pain in right wrist Condition STABLE Referrals Vicenta MAGALLON,Talat Luong (Family): 3 Days-Call Office if no improvement or worsening of symptoms Patient Instructions DI for Wrist Pain Additional Instructions *RICE, Rest the extremity, Ice 15-20 minutes 3-4 times daily, Compress- wear the festus wrap, Elevate the extremity when at rest *Festus wrap is for support and help control swelling, use it except in the shower. Be sure that is not to tight but not to loose either *Elevate as discussed as much as possible to help reduce swelling and pain *Ibuprofen 600-800mg every 6-8 hours as needed for pain an inflammation. If need something more can take Tylenol in between doses of Ibuprofen to help Immediately follow up for new or worsening of symptoms, or no noticeable improvement over the nex 3-5 days Discharge Counseling Counseled pt/family regarding diagnosis, home care, follow up needs Prescriptions Current Visit Scripts Ibuprofen (Ibuprofen 800MG) 800 MG PO QIDP PRN pain #30 TAB at 1350
[2017-03-20 13:54] VITALS: BP 133/75
--- NOTE | 2017-03-20 15:00 | RADIOLOGY REPORT PS360 ---
WRIST-3 VIEWS-RT HISTORY: PAIN FROM INJURY AT WORK LIFTING BASKETS ORDERING PHYSICIAN: CHANO SRINIVASAN APRN PATIENT AGE: 27 years COMPARISON: None FINDINGS: No fracture or dislocation. No lytic or blastic change. There is normal mineralization.. The joint spaces are well-preserved. No significant degenerative/arthritic changes. No erosive changes evident.. IMPRESSION: Negative right wrist
== END 2017-03-20 14:00 | disposition home or self-care (01) ==
LOC: UTC 12:44
DX: M25.531 Pain in right wrist (principal); X50.0XXA Overexertion from strenuous movement or load, initial encounter; Y92.69 Other specified industrial and construction area as the place of occurrence of the external cause; Y99.0 Civilian activity done for income or pay